=== PATIENT | female | born 1935 | race Hispanic/Latino ===

== ENCOUNTER 2017-01-23 17:55 | Emergency (ER) | payer MEDICARE, MEDICAID ==
[2017-01-23 18:06] VITALS: BMI 30.9
[2017-01-23 18:11] VITALS: TEMP 98.5
--- NOTE | 2017-01-23 19:01 | ED PDOC ---
Arrival/HPI - General Chief Complaint: Back Pain Time Seen by Provider: 01/23/17 18:34 Historian: Patient - History of Present Illness Narrative History of Present Illness (Text): 01/23/17 18:52 81yo female with PMhx of cervical radiculopathy, hypertension and CAD who present with complaint of left sided neck pain that radiates to her head and shoulder since this afternoon. States pain is "spasm" like. States she lifts her laundry, because she don't have anyone to help her and thinks it caused the pain. She denies chest pain, SOB, diaphoresis, nausea, vomiting , diarreha, Past Medical History - Provider Review Nursing Documentation Reviewed: Yes - Infectious Disease Hx of Infectious Diseases: None - Tetanus Immunization Tetanus Immunization: Unknown - Cardiac Hx Cardiac Disorders: Yes Hx SD: Yes (March 2015) - Pulmonary Hx Respiratory Disorders: Yes Hx Chronic Obstructive Pulmonary Disease (COPD): Yes - Neurological Hx Neurological Disorder: Yes (VERTIGO) Hx Alzheimer's Disease: No HX Cerebrovascular Accident: No Hx Dementia: No Hx Migraine: No Hx Parkinson's Disease: No Hx Seizures: No Hx Transient Ischemic Attacks (TIA): No - HEENT Hx HEENT Disorder: Yes Hx Cataracts: Yes (had sx b/l) Hx Deafness: No Hx Difficulty Chewing: No Hx Epistaxis: No Hx Glaucoma: Yes Hx Macular Degeneration: No Other/Comment: cataract surgery - Renal Hx Renal Disorder: No Hx Renal Failure: No - Endocrine/Metabolic Hx Endocrine Disorders: Yes Hx Hyperthyroidism: No Hx Hypothyroidism: Yes - Hematological/Oncological Hx Blood Disorders: Yes Hx Cancer: Yes (skin bridge of nose) - Integumentary Hx Dermatological Disorder: Yes Hx Basal Cell Carcinoma: No Hx Eczema: Yes Hx Melanoma: No Hx Psoriasis: No Hx Squamous Cell Carcinoma: No Other/Comment: skin cancer removed from the bridge of the nose. Patient does not know what type of skin cancer. - Musculoskeletal/Rheumatological Hx Arthritis: Yes Hx Osteoarthritis: Yes Hx Osteoporosis: Yes Hx Spinal Stenosis: Yes - Gastrointestinal Hx Gastrointestinal Disorders: Yes Hx Crohn's Disease: No Hx Diverticulitis: Yes Hx Gastroesophageal Reflux: Yes Hx Gastrointestinal Ulcer: Yes Hx Liver Failure: No - Genitourinary/Gynecological Hx Genitourinary Disorders: No Hx Hematuria: No Hx Incontinence: No Hx Prostate Problems: No Hx Sexually Transmitted Diseases: No Hx Urinary Tract Infection: No - Psychiatric Hx Psychophysiologic Disorder: Yes Hx Anxiety: Yes Hx Depression: Yes Hx Emotional Abuse: No Hx Physical Abuse: No Hx Substance Use: No - Surgical History Hx Coronary Stent: Yes (x4) Hx Orthopedic Surgery: Yes - Anesthesia Hx Anesthesia: Yes Hx Anesthesia Reactions: No Hx Malignant Hyperthermia: No - Suicidal Assessment Feels Threatened In Home Enviroment: No Family/Social History - Physician Review Nursing Documentation Reviewed: Yes Family/Social History: Unknown Family HX Smoking Status: Never Smoked Hx Alcohol Use: No Hx Substance Use: No Hx Substance Use Treatment: No Allergies/Home Meds Allergies/Adverse Reactions: Allergies lactase [From [employer]] Allergy (Verified 01/23/17 18:06) CONGESTION Penicillins Allergy (Verified 01/23/17 18:06) ANAPHYLAXIS Home Medications: Home Meds Medication Instructions Recorded Confirmed Levothyroxine Sodium 0.05 mg PO DAILY 02/12/13 01/23/17 buPROPion SR [Wellbutrin] 150 mg PO DAILY 09/01/14 01/23/17 ALPRAZolam [Xanax] 0.25 mg PO PRN PRN 01/23/17 01/23/17 Review of Systems - Physician Review All systems were reviewed & negative as marked: Yes - Review of Systems Constitutional: Normal Eyes: Normal ENT: Normal Respiratory: Normal Cardiovascular: Normal Gastrointestinal: Normal Genitourinary Female: Normal Musculoskeletal: Neck Pain Skin: Normal Neurological: Normal Endocrine: Normal Hemo/Lymphatic: Normal Psychiatric: Normal Physical Exam Vital Signs Reviewed: Yes Vital Signs Temp Pulse Resp BP Pulse Ox 01/23/17 22:27 59 L 17 148/69 94 L 01/23/17 18:07 98.5 F 65 16 155/73 H 96 Temperature: Afebrile Blood Pressure: Normal Pulse: Regular Respiratory Rate: Normal Appearance: Positive for: Well-Appearing, Non-Toxic, Comfortable Pain Distress: None Mental Status: Positive for: Alert and Oriented X 3 - Systems Exam Head: Present: Atraumatic, Normocephalic Pupils: Present: PERRL Extroacular Muscles: Present: EOMI Conjunctiva: Present: Normal Mouth: Present: Moist Mucous Membranes Neck: Present: Normal Range of Motion. No: MIDLINE TENDERNESS, Paraspinal Tenderness Respiratory/Chest: Present: Clear to Auscultation, Good Air Exchange. No: Respiratory Distress, Accessory Muscle Use Cardiovascular: Present: Regular Rate and Rhythm, Normal S1, S2. No: Murmurs Abdomen: Present: Normal Bowel Sounds. No: Tenderness, Distention, Peritoneal Signs Back: Present: Normal Inspection Upper Extremity: Present: Normal Inspection, Normal ROM, NORMAL PULSES, Neurovascularly Intact, Capillary Refill < 2s, Norm 2-Pt Discrimination. No: Cyanosis, Edema, Tenderness, Swelling, Erythema, Temperature Abnormalties, Deformity Lower Extremity: Present: Normal Inspection. No: Edema Neurological: Present: GCS=15, CN II-XII Intact, Speech Normal Skin: Present: Warm, Dry, Normal Color. No: Rashes Psychiatric: Present: Alert, Oriented x 3, Normal Insight, Normal Concentration Medical Decision Making ED Course and Treatment: 01/23/17 22:15 PT in ED with stated history. She was ambulatory in ED. she have no focal neurological deficit. Having discussion with her friend and laughing. Tylenol was given in ED for pain. EKG _ Sinus ferny. LVH @ 59bpm. No acute ST changes noted. Head CT - Mild atrophy and small vessel disease, no bleed; age indeterminate left frontal and basal ganglia infarcts. Result was DW Dr. Cardenas. He states pt should be DC home and instructed to take ASA daily and call the office tomorrow for a follow up and outpt imaging. On further discussion with the patient she states she currently takes 81mg of ASA at home. Result was DW the pt. She was given a rx of Tramadol and flexeril. Advised to stop lifting heavy objects and to f/u with her PMD tomorrow. Advised to return to ED immediately for any new or worsening symptoms.. - RAD Interpretation Radiology Orders: 01/23/17 18:48 HEAD W/O CONTRAST [CT] Stat 01/23/17 18:49 SHOULDER LEFT [RAD] Stat - Medication Orders Current Medication Orders: Discontinued Medications Acetaminophen (Tylenol 325mg Tab) 650 mg PO STAT STA Stop: 01/23/17 20:04 Last Admin: 01/23/17 20:13 Dose: 650 MG MAR Pain/Vitals Document 01/23/17 20:13 SE (Rec: 01/23/17 20:13 SE [id number]) Pain Reassessment Is This A Pain ReAssessment? No Sleep Is patient sleeping during reassessment? No Presence of Pain Presence of Pain Yes Disposition/Present on Arrival - Present on Arrival Any Indicators Present on Arrival: No History of DVT/PE: No History of Uncontrolled Diabetes: No Urinary Catheter: No History of Decub. Ulcer: No History Surgical Site Infection Following: None - Disposition Have Diagnosis and Disposition been Completed?: Yes Diagnosis: Neck pain Disposition: HOME/ ROUTINE Disposition Time: 22:05 Patient Plan: Discharge Condition: STABLE Discharge Instructions (ExitCare): Cervical Sprain (ED) Additional Instructions: Follow up with your Doctor tomorrow Return to ED for any new or worsening symptoms Prescriptions: Cyclobenzaprine [Flexeril] 5 mg PO BID #10 tab traMADol [Ultram] 50 mg PO Q8 #10 tab Referrals: Chay Samuel MD [Primary Care Provider] - Follow up with primary
--- NOTE | 2017-01-23 21:28 | CT ---
EXAM: CT Head Without Intravenous Contrast CLINICAL HISTORY: 81 years old, female; Pain; Headache; Headache not specified TECHNIQUE: Axial computed tomography images of the head/brain without intravenous contrast. EXAM DATE/TIME: 01/23/2017 6:48 PM COMPARISON: There are no prior studies for comparison. FINDINGS: Brain: Ventricles are normal in size. There is mild prominence of sulci and gyri. There is no midline shift. There is decrease attenuation in periventricular white matter. There is an age-indeterminate left frontal infarct. There are age-indeterminate small lacunar infarcts in the basal ganglia. There are no intra-axial or extra-axial mass lesions or areas of hemorrhage. There are no abnormal fluid collections. Peralta-white differentiation is maintained. Ventricles: See above Bones: Cranial vault is intact. Soft tissues: unremarkable Sinuses: There is no acute sinusitis. Ears and mastoids: Middle ears and mastoids are unremarkable Orbits: Orbital contents are unremarkable. IMPRESSION: Mild atrophy and small vessel disease, no bleed; age indeterminate left frontal and basal ganglia infarcts
[2017-01-23 22:27] VITALS: BP 148/69; PULSE 59; RESP 17; O2SAT 94
--- NOTE | 2017-01-24 08:55 | RAD ---
PROCEDURE: Radiographs of the Left Shoulder HISTORY: shoulder pain COMPARISON: No prior. FINDINGS: BONES: Normal. No fracture. JOINTS: Degenerative changes are seen in the acromioclavicular joint. SOFT TISSUES: There is a calcification adjacent to the humeral head consistent with calcific tendonitis OTHER FINDINGS: None. IMPRESSION: No acute finding
--- NOTE | 2017-01-24 15:34 | CARD ---
APPROVED REPORT EKG Measurement Heart [id number] CT 178P45 [id number] <Conclusion> Sinus bradycardia Minimal voltage criteria for LVH, may be normal variant Borderline ECG
== END 2017-01-23 22:28 | disposition home or self-care (01) ==
LOC: ED 17:55
DX: M54.2 Cervicalgia (principal); I10 Essential (primary) hypertension; I25.10 Atherosclerotic heart disease of native coronary artery without angina pectoris

== ENCOUNTER 2017-03-28 11:59 | Day surgery (SDC) | payer MEDICARE, MEDICAID ==
[2017-03-28] MEDS ORDERED: Iodixanol 320 MG/ML 200 ML BOTTLE IV ONE (12:04)
[2017-03-28] MEDS ORDERED: Iodixanol 320 mg/ml 150 ml Bottle IV ONE (12:04)
[2017-03-28 12:38] LABS: ADD MANUAL DIFF? NO
[2017-03-28 12:44] LABS: BASO # 0.03 K/mm3 (0.0-2.0); BASO % 0.5 % (0.0-3.0); EOS # 0.1 (0.0-0.7); GRAN % 55.3 % (50.0-68.0); HEMATOCRIT 38.6 % (36.0-48.0); LYMPH # 1.9 (1.2-3.4); LYMPH % 32.5 % (22.0-35.0); MEAN CELL VOLUME 93.5 fL (80.0-105.0); MEAN CORPUSCULAR HEMOGLOBIN 31.2 pg (25.0-35.0); MEAN CORPUSCULAR HGB CONC 33.4 g/dl (31.0-37.0); MEAN PLATELET VOLUME 9.5 fl (7.0-11.0); MONO # 0.6 (0.1-0.6); MONO % 9.7 % (1.0-6.0); PLATELET COUNT 195 10^3/uL (120.0-450.0); RED CELL DISTRIBUTION WIDTH 13.1 % (11.5-14.5)
[2017-03-28 12:53] LABS: INR 0.97 (0.93-1.08); PARTIAL THROMBOPLASTIN TIME 36.3 Seconds (23.7-30.8)
[2017-03-28 12:55] LABS: BLOOD UREA NITROGEN 17 mg/dL (7-21); CALCIUM 9.7 mg/dL (8.4-10.5); CARBON DIOXIDE 28 mmol/L (21-33); CHLORIDE 106 mmol/L (98-107); GFR AFRICAN-AMERICAN > 60; GLUCOSE,RANDOM 87 mg/dL (70-110); POTASSIUM 4.2 mmol/L (3.6-5.0); SODIUM 141 mmol/L (132-148)
--- NOTE | 2017-03-28 13:18 | CP.SDSHP ---
Same Day Surgery H & P - Previous Medical/Surgical History Cardiac: ASHD/CAD (S/P cardiac cath,had 4 stents), Previous PR (had PR x 2), PVD Pulmonary: Asthma, Emphysema/COPD Endocrine/Metabolic: Thyroid Disease (hypothyroidism), Obesity Misc: Other (Vertigo,Osteoporosis,Gerd,Arthritis,Glaucoma,history of skin cancer ,Spinal stenosis,Depression,Anxiety,Macular degeneration,GI Ulcer.History of Myasthenia gravis is noted in the chart,however,pt denies this.) Pain: 0. No Pain (while resting) Comments: Work up for c/o pain both legs revealed PVD. Previous Surgical History: Cardiac cath 2013,2015,had a total of 4 stents. Cataract surgery R eye. Surgery for skin canceron the nose. L leg patellar sugery. T&A as a child. Growth on anal area - Allergies Allergies: Allergies lactase [From Dairy Aid] Allergy (Verified 01/23/17 18:06) CONGESTION Penicillins Allergy (Verified 01/23/17 18:06) ANAPHYLAXIS - Physical Exam General Appearance: Well nourished elderly female Vital Signs: Vital Signs 03/28/17 12:42 Temperature 99 F Pulse Rate 66 Respiratory 20 Rate Blood Pressure 159/67 H O2 Sat by Pulse 95 Oximetry Mental Status: Alert & Oriented x3 Neuro: WNL Heart: WNL Lungs: WNL - {Optional Preform as Required} Abdomen: WNL Integument: WNL Other Pertinent Findings: both DP pulses felt by doppler - Impression Impression: PVD - Date & Time Date: 03/28/17 Time: 13:17 Short Stay Discharge - Short Stay Discharge Admitting Diagnosis/Reason for Visit: PVD I70.213 Disposition: HOME/ ROUTINE Referrals: Isrrael Cardenas MD [Primary Care Provider] -
[2017-03-28] MEDS ORDERED: Midazolam 2 MG/2 ML VIAL ONE ×2 (13:26→14:00)
[2017-03-28] MEDS ORDERED: Lidocaine 2% Inj (20ml) ONE (13:26)
[2017-03-28] MEDS ORDERED: Nitroglycerin 50mg in D5W 50 MG/250 ML BOTTLE IV ONE (13:27)
[2017-03-28] MEDS ORDERED: Oxycodone/Acetaminophen 5/325 mg Tab PO PRN (15:02)
[2017-03-28] MEDS ORDERED: Sodium Chloride 0.45% 1,000 ML IV SCH (15:15)
[2017-03-28 15:56] VITALS: RESP 20; TEMP 97.7
--- NOTE | 2017-03-28 16:29 | VASCULAR ---
PROCEDURE: 1. Abdominal aortogram and bilateral lower extremity runoff with left selective views. 2. Distal left SFA silver Hawk atherectomy and drug-eluting balloon angioplasty 3. Proximal left anterior tibial artery angioplasty HISTORY: Severe peripheral vascular disease. Lifestyle limiting claudication. PHYSICIAN(S): Zach aSmuel M.D. TECHNIQUE: The relative risks and indications of the procedure were explained to the patient and consent obtained. The patient was hydrated prior to the procedure and the appropriate labs drawn. The patient was placed supine on the arteriogram table and the right groin prepped and draped in the usual sterile fashion. Conscious sedation and monitoring were provided throughout the procedure by a nurse. Via a right common femoral artery approach, a 5 Micronesian sheath was placed in the right groin. Through the sheath and over a guidewire, a 5 Micronesian flush catheter was placed in the abdominal aorta at the level of the renal arteries and a PA DSA abdominal aortogram performed. The catheter was pulled down to the aortic bifurcation and bilateral oblique DSA pelvic arteriograms performed. Overlapping bilateral lower extremity DSA arteriograms were obtained from the inguinal ligaments to the ankles. A 0.035 angled Glidewire was advanced over the bifurcation and placed in the mid left SFA. A Micronesian 65 cm destination sheath was placed in the mid left SFA. Heparin 5000 units IV and nitroglycerin in 250 mcg aliquots were given. The severe stenosis in the distal left SFA and severe stenosis in the proximal left anterior tibial artery were crossed with a 5 Micronesian catheter and angled Glidewire.. Exchange was made for a 0.014 support guidewire. The proximal left anterior tibial artery was dilated with a 3.0 and 3.5 mm balloon. An excellent angiographic result was obtained and no stent was required. Silver Hawk atherectomy of the distal left SFA was performed with and LS catheter. Approximately 8 passes were performed. The segment was then dilated with a 6 mm drug-eluting balloon. Once again an excellent angiographic result was obtained and no stent was required. Completion angiograms were obtained. The sheath was removed and hemostasis obtained with a Perclose device. FINDINGS: There are single renal arteries bilaterally which are widely patent and normal in appearance. The nephrograms are symmetric in appearance. The infrarenal abdominal aorta is widely patent without a radiographically significant stenosis. The aortic bifurcation is widely patent. The common and external iliac arteries are normal in appearance without a significant stenosis. The internal iliac arteries are patent bilaterally. Right lower extremity: The right common femoral artery is patent. The right profunda femoral artery is patent. The right superficial femoral artery is patent and continuous with a severe 3 cm stenosis in the adductor canal.. The right popliteal artery has moderate to severe disc disease which extends into the tibial-peroneal trunk. There is 3 vessel runoff on the right. Multiple severe stenoses are seen in the small right anterior tibial artery. The predominant supply to the foot is the right peroneal and posterior tibial arteries. Left lower extremity: Left common femoral artery is patent. The left profunda femoral artery is patent. The left superficial femoral artery is patent with a severe focal stenosis in the adductor canal. The left popliteal artery is patent. There is an occlusion of the proximal left tibioperoneal trunk. The left posterior tibial artery is occluded. There is reconstitution of the left peroneal artery. There is a severe stenosis of the proximal left anterior tibial artery. The left anterior tibial artery is a predominant supply to the foot. There are additional mild to moderate stenoses in the mid to distal left anterior tibial artery.. IMPRESSION: 1.Successful distal left SFA silver Hawk atherectomy and drug-eluting balloon angioplasty 2. Successful proximal left anterior tibial artery angioplasty. The left tibioperoneal trunk is occluded.
[2017-03-28 19:07] VITALS: O2SAT 97
[2017-03-28 19:12] VITALS: BP 158/70; PULSE 62
== END 2017-03-28 19:09 | disposition home or self-care (01) ==
LOC: SDSVAS 11:59
PROVIDERS: ATTEND Radiology Vascular & Interventional Radiology
DX: I70.213 Atherosclerosis of native arteries of extremities with intermittent claudication, bilateral legs (principal); I25.10 Atherosclerotic heart disease of native coronary artery without angina pectoris; J44.9 Chronic obstructive pulmonary disease, unspecified; E66.9 Obesity, unspecified; E03.9 Hypothyroidism, unspecified; H35.30 Unspecified macular degeneration; M81.0 Age-related osteoporosis without current pathological fracture; K21.9 Gastro-esophageal reflux disease without esophagitis; F41.9 Anxiety disorder, unspecified; I25.2 Old myocardial infarction; Z85.828 Personal history of other malignant neoplasm of skin; Z95.5 Presence of coronary angioplasty implant and graft
CPT/HCPCS: 36415; 37225; 37226; 75625; 75716; 80048; 85025; 85610; 85730; 99152; 99153; C1725 ×4; C1760 ×2; C1764; C1769 ×4; C1887 ×2; C1894; J1644 ×2; J2250; J2405; J3010; J7030

== ENCOUNTER 2018-05-04 17:09 | Inpatient (IN) | payer MEDICARE, MEDICAID ==
[2018-05-04 17:14] VITALS: BMI 30.2
--- NOTE | 2018-05-04 17:24 | ED PDOC ---
Arrival/HPI - General Time Seen by Provider: 05/04/18 17:14 Historian: Patient - History of Present Illness Narrative History of Present Illness (Text): 05/04/18 17:16 A 83 year old female, whose past medical history includes copd, hypothyroidism, eczema, gerd, diverticulitis, gastrointestinal ulcer, and coronary stents x 4, brought in by EMS for injuries s/p fall. Per EMS, patient's neighbor called 911 due to not having seen patient for a few days. Patient was found on the floor and immediately brought here to the emergency room. Patient states she has been on the floor for about 1 day. Limited HPI and ROS due to patient's AMS at this time. PMD: Dr. Isrrael Cardenas Past Medical History - Provider Review Nursing Documentation Reviewed: Yes - Infectious Disease Hx of Infectious Diseases: None - Tetanus Immunization Tetanus Immunization: Unknown - Cardiac Hx Pacemaker: No - Pulmonary Hx Respiratory Disorders: Yes Hx Chronic Obstructive Pulmonary Disease (COPD): Yes - Neurological Hx Paralysis: No - HEENT Hx HEENT Disorder: Yes Hx Cataracts: Yes (had sx b/l) Hx Deafness: No Hx Difficulty Chewing: No Hx Epistaxis: No Hx Glaucoma: Yes Hx Macular Degeneration: No Other/Comment: cataract surgery - Renal Hx Renal Disorder: No Hx Renal Failure: No - Endocrine/Metabolic Hx Endocrine Disorders: Yes Hx Hyperthyroidism: No Hx Hypothyroidism: Yes - Hematological/Oncological Hx Blood Transfusions: No - Integumentary Hx Dermatological Disorder: Yes Hx Basal Cell Carcinoma: No Hx Eczema: Yes Hx Melanoma: No Hx Psoriasis: No Hx Squamous Cell Carcinoma: No Other/Comment: skin cancer removed from the bridge of the nose. Patient does not know what type of skin cancer. - Musculoskeletal/Rheumatological Hx Musculoskeletal Disorders: Yes - Gastrointestinal Hx Gastrointestinal Disorders: Yes Hx Crohn's Disease: No Hx Diverticulitis: Yes Hx Gastroesophageal Reflux: Yes Hx Gastrointestinal Ulcer: Yes Hx Liver Failure: No - Genitourinary/Gynecological Hx Genitourinary Disorders: No Hx Hematuria: No Hx Incontinence: No Hx Prostate Problems: No Hx Sexually Transmitted Diseases: No Hx Urinary Tract Infection: No - Psychiatric Hx Emotional Abuse: No Hx Physical Abuse: No Hx Substance Use: No - Surgical History Hx Coronary Stent: Yes (x4) Hx Orthopedic Surgery: Yes - Anesthesia Hx Anesthesia Reactions: No Hx Malignant Hyperthermia: No - Suicidal Assessment Feels Threatened In Home Enviroment: No Family/Social History - Physician Review Nursing Documentation Reviewed: Yes Family/Social History: Unknown Family HX Smoking Status: Never Smoked Hx Alcohol Use: No Hx Substance Use: No Hx Substance Use Treatment: No Allergies/Home Meds Allergies/Adverse Reactions: Allergies lactase [From Dairy Aid] Allergy (Verified 05/04/18 17:14) CONGESTION Penicillins Allergy (Verified 05/04/18 17:14) ANAPHYLAXIS Home Medications: Home Meds Medication Instructions Recorded Confirmed Levothyroxine Sodium 0.05 mg PO DAILY 02/12/13 03/28/17 buPROPion SR [Wellbutrin] 150 mg PO DAILY 09/01/14 03/28/17 ALPRAZolam [Xanax] 0.25 mg PO PRN PRN 01/23/17 03/28/17 Review of Systems - Review of Systems Systems not reviewed;Unavailable: Altered Mental Status Physical Exam - Physical Exam Narrative Physical Exam (Text): Gen: VS reviewed, alert, well developed, well nourished, nontoxic, mild distress. ENT: normal pharynx Eye: EOMI, PERRL, bruising and ecchymosis to left eye Neck: no JVD, supple, no adenopathy CV: regular rate, regular rhythm, no rubs, no murmur, no gallops, S1, S2, pulses equal and strong Pulm: no distress, lear to auscultation, no wheeze, no rhonchi, breath sounds equal, no rales Abd: soft, nontender, no guarding, no rebound, no rigidity, normal bowel sounds Ext: left hand swelling, left elbow bruising, left lateral knee bruising, left hip skin breakdown, mild medial discoloration. Skin: good color, no rash, no cyanosis, bruising and ecchymosis to forehead Psych: responds appropriately to questions, normal affect Neuro: oriented x 3, CN2-12 intact grossly, motor intact, sensation intact, left -side mouth droop Vital Signs Temp Pulse Resp BP Pulse Ox 05/04/18 21:30 92 H 18 160/85 H 95 05/04/18 21:20 98 H 18 151/69 H 05/04/18 20:50 98 H 18 151/69 H 93 L 05/04/18 17:33 98.0 F 83 18 158/92 H 95 Finger Stick Blood Glucose: 132 Medical Decision Making ED Course and Treatment: 05/04/18 17:21 Impression: 83 year old female with injuries s/p fall. Plan: -- EKG -- Head CT -- Cervical Spinal CT -- Chest/Abd/Pelvis CT -- Labs -- Venous Blood Gas -- Blood Culture -- Urine Culture -- IV Fluids -- Urinalysis -- Collar Cervical -- Fingerstick Blood Sugar -- Urinary Catheter -- Reassess and disposition Progress Notes: 05/04/18 17:40 EKG: Ordered, reviewed, and independently interpreted the EKG. Rate : 81 BPM Rhythm : NSR Interpretation : Normal QRS, normal access, no ST- and T wave abnormalities, LVH. Comparison : No previous EKG for comparison. 05/04/2018 18:[address] IMPRESSION: Right basal ganglia subacute infarct. Mild mass effect with compression of the right lateral ventricle. No hemorrhagic transformation. Moderate soft tissue edema of the left hemispheric scalp. Dictator: Dwayne Tang MD 05/04/2018 19:[address] IMPRESSION: Nondisplaced fracture of the leg 10th rib. There is nonspecific or focal airspace disease in the left lung base and lingula , consistent with atelectasis or pneumonia. Multiple likely post inflammatory nodules. Largest in the right apex 4 mm. Calcified granuloma left lung base. For lung nodules 4 mm or smaller in seize, if the patient is considered high risk for lung cancer or metastic disease, follow-up CT in 12 months is recommended. If patient is considered low risk amd under age 35, no follow-up needed. Dictator: Dwayne Tang MD 05/04/2018 19:[address] IMPRESSION: No significant injury noted in the C-spine. Severe degenerative changes of the C-spine are present. Dictator: Dwayne Tang MD 05/04/18 20:24 admit accepted by hospitalist, patient to be admitted for cva, patient is far out of window for acute thrombolysis or mechanical retrieval. will empirically tx for pneumonia in light of infiltrate and leukocytosis. patient ordered for rectal aspirin for neuroprotection. from a mental standpoint, despite patient's somewhat difficult to understand speech, her mentation was appropriate, she was able to follow commands and she requested that I call her daughter Brunilda. 05/04/18 20:31 LMOM to attempt to call mario Worley on number on file 05/04/18 21:53 - Lab Interpretations Lab Results: 05/04/18 17:00 05/04/18 17:00 Lab Results 05/04/18 17:00: TSH 3rd Generation 1.07 05/04/18 17:00: Sodium 144, Chloride 103, Potassium 3.9, Carbon Dioxide 29, Anion Gap 16, BUN 29 H, Creatinine 0.8, Est GFR ( Amer) > 60, Est GFR ( Non-Af Amer) > 60, Random Glucose 131 H, Calcium 9.4, Phosphorus 2.8, Magnesium 2.5 H, Total Bilirubin 0.9, AST 106 H, ALT 54, Alkaline Phosphatase 98, Total Creatine Kinase 1533 H, CK-MB (CK-2) 8.4 H, CK-MB (CK-2) % 0.5 L, Troponin I 0.03 D, Total Protein 8.2, Albumin 4.3, Globulin 3.9, Albumin/Globulin Ratio 1.1, Lipase 36 05/04/18 17:00: pO2 23 L, VBG pH 7.38, VBG pCO2 55.0, VBG HCO3 32.5 H, VBG Total CO2 34.2 H, VBG O2 Sat (Calc) 47.1, VBG Base Excess 5.8 H, VBG Potassium 4.2, Sodium 143.0, Chloride 107.0, Glucose 131 H, Lactate 2.0, FiO2 21.0, Venous Blood Potassium 4.2 05/04/18 17:00: PT 12.5, INR 1.09 H, APTT 46.6 H 05/04/18 17:00: WBC 16.2 H D, RBC 5.30, Hgb 16.6 H, Hct 49.6 H, MCV 93.6, MCH 31.3, MCHC 33.5, RDW 13.6, Plt Count 205, MPV 9.8, Gran % 76.7 H, Lymph % (Auto ) 10.2 L, Cache % (Auto) 13.0 H, Eos % (Auto) 0.0 L, Baso % (Auto) 0.1, Gran # 12.42 H, Lymph # (Auto) 1.7, Cache # (Auto) 2.1 H, Eos # (Auto) 0.0, Baso # (Auto ) 0.02 - RAD Interpretation Radiology Orders: 05/04/18 17:22 HEAD W/O CONTRAST [CT] Stat 05/04/18 17:23 CERVICAL SPINE W/O CONTRAST [CT] Stat CHEST,ABD,PEL W/IV CONT ONLY [CT] Stat - Medication Orders Current Medication Orders: Atorvastatin Calcium (Lipitor) 40 mg PO DIN MARK Guaifenesin (Robitussin) 100 mg PO Q4H PRN PRN Reason: Cough Sodium Chloride (Sodium Chloride 0.9%) 1,000 mls @ 150 mls/hr IV .Q6H40M MARK Last Admin: 05/04/18 18:37 Dose: 150 mls/hr eMAR Start Stop Document 05/04/18 18:37 [email or web address] (Rec: 05/04/18 18:37 [email or web address] [id number]) Intravenous Solution Start Date 05/04/18 Start Time 18:37 Discontinued Medications Aspirin (Aspirin Supp) 300 mg RC STAT STA Stop: 05/04/18 19:25 Last Admin: 05/04/18 19:35 Dose: 300 mg Levofloxacin/Dextrose (Levaquin 750mg) 750 mg IVPB STAT STA PRN Reason: Protocol Stop: 05/04/18 19:29 Last Admin: 05/04/18 21:29 Dose: 750 mg eMAR Start Stop Document 05/04/18 21:29 IT (Rec: 05/04/18 21:30 IT [facility] [id number] Intravenous Solution Start Date 05/04/18 Start Time 21:15 End Date 05/04/18 NIHSS Stroke Scale 3 - Date/Time Evaluation Performed When Was NIHSS Performed: Baseline - How Severe is the Stroke Level of Consciousness: 0=Alert LOC to Questions: 0=Both comments correct LOC to commands: 0=Obeys both correctly Best Gaze: 0=Normal Visual: 0=No visual loss Facial: 2=Partial (lower face paralysis) Motor Arm - Left: 4=No movement Motor Arm - Right: 0=No drift Motor Leg - Left: 4=No movement Motor Leg - Right: 0=No drift Limb Ataxia: 0=Absent Sensory: 2=Severe to total loss Best Language: 0=No aphasia Dysarthia: 1=Mild to moderate slurring Extinction & Inattention (Neglect): 0=Normal, no object Score: 13 - Scribe Statement The provider has reviewed the documentation as recorded by the Domo Ortega Provider Scribe Provider Domo Attestation: All medical record entries made by the Domo were at my direction and personally dictated by me. I have reviewed the chart and agree that the record accurately reflects my personal performance of the history, physical exam, medical decision making, and the department course for this patient. I have also personally directed, reviewed, and agree with the discharge instructions and disposition. Disposition/Present on Arrival - Present on Arrival Any Indicators Present on Arrival: No History of DVT/PE: No History of Uncontrolled Diabetes: No Urinary Catheter: No History Surgical Site Infection Following: None - Disposition Have Diagnosis and Disposition been Completed?: Yes Diagnosis: CVA (cerebral vascular accident), Rhabdomyolysis, Pneumonia Disposition: HOSPITALIZED Disposition Time: 20:27 Patient Plan: Admission Patient Problems: Current Active Problems Problem Status Onset CVA (cerebral vascular accident) Acute Pneumonia Acute Rhabdomyolysis Acute Condition: FAIR
[2018-05-04] MEDS ORDERED: Iohexol 350 MG/100 ML VIAL ONE (17:37)
[2018-05-04] MEDS: Sodium Chloride 0.9% 1,000 ML IV SCH (18:37)
[2018-05-04 18:59] LABS: TROPONIN I 0.03 ng/mL
[2018-05-04 19:01] LABS: BASO # 0.02 K/mm3 (0.0-2.0); BASO % 0.1 % (0.0-3.0); GRAN # 12.42 (1.4-6.5); GRAN % 76.7 % (50.0-68.0); HEMOGLOBIN 16.6 g/dL (12.0-16.0); LYMPH # 1.7 (1.2-3.4); LYMPH % 10.2 % (22.0-35.0); MEAN CELL VOLUME 93.6 fl (80.0-105.0); MEAN CORPUSCULAR HEMOGLOBIN 31.3 pg (25.0-35.0); MEAN CORPUSCULAR HGB CONC 33.5 g/dl (31.0-37.0); MEAN PLATELET VOLUME 9.8 fl (7.0-11.0); MONO # 2.1 (0.1-0.6); RBC 5.3 10^6/uL (3.5-6.1); RED CELL DISTRIBUTION WIDTH 13.6 % (11.5-14.5); WHITE BLOOD COUNT 16.2 10^3/ul (4.5-11.0)
[2018-05-04 19:03] LABS: VENOUS BLOOD GAS BASE EXCESS 5.8 mmol/L (0.0-2.0); VENOUS BLOOD GAS PO2 23 mm/Hg (30-55); VENOUS BLOOD PH 7.38 (7.32-7.43)
[2018-05-04 19:13] LABS: ALB/GLOB RATIO 1.1 (1.1-1.8); ALBUMIN 4.3 g/dL (3.0-4.8); ALT/SGPT 54 U/L (7-56); AST/SGOT 106 U/L (14-36); BLOOD UREA NITROGEN 29 mg/dL (7-21); CALCIUM 9.4 mg/dL (8.4-10.5); GFR AFRICAN-AMERICAN > 60; GFR NON-AFRICAN AMERICAN > 60; LIPASE 36 U/L (23-300)
[2018-05-04 19:23] LABS: INR 1.09 (0.93-1.08); PARTIAL THROMBOPLASTIN TIME 46.6 Seconds (25.1-36.5); PROTHROMBIN TIME 12.5 SECONDS (9.4-12.5)
[2018-05-04] MEDS ORDERED: levoFLOXacin 750 mg in D5W 150 ML BAG IVPB STA (19:28)
[2018-05-04 19:33] LABS: CK MB% 0.5 % (2.5-3.0); CK-MB 8.4 ng/mL (0.0-3.6)
[2018-05-04] MEDS ORDERED: guaiFENesin 100 mg/5 ml Syrup UD PO PRN (21:46)
--- NOTE | 2018-05-04 22:21 | CP.PCM.HP ---
<Nael Haas - Last Filed: 05/05/18 06:27> History of Present Illness - History of Present Illness History of Present Illness: HPI: for Dr Yonatan Haas, DO PGY1 C.C: s/p unwitnessed fall. has been on the floor x2 days HPI: 83 y/o female with PMH of HTN,CAD (4 stents), COPD, hypothyroidism presents s/p unwitnessed fall in her house where she was found by EMS after responding to a call placed by neighbors. She lives alone, neighbors were worried not to hear from her for 2 day and they called EMS. Patient reported that she was not able to get up from the floor however does not recall the fall. Patient admits to left chest wall pain, b/l leg pain, left facial pain all due to her fall. She denied LOC, chest pain, palpitations, cough. She reports taking low dose ASA, levothyroxin. Her daughter was contacted, a voicemail was left by ED physician. Due to speech difficulty, obtaining full history is not feasible at that time. Full H/P will be obtained at the floor. PMH: FL x2, vertigo, skin cancer,depression, hypothyroidism, vertigo PSH: b/l cataract surgery FH: none SocH: never smoke, no drugs or ETOH In ED: -BP: 153/74 P 97 - CT head: basal ganglia infarct. no hemorrhage -CT chest w/contrast: non dispalced fracture of 10 left rib, left lung base infiltrates. no pneumothorax. -CT spine w/o contrast: no fracture, degenerative changes Present on Admission - Present on Admission Any Indicators Present on Admission: No History of DVT/PE: No History of Uncontrolled Diabetes: No Review of Systems - Review of Systems Systems not reviewed;Unavailable: Uncooperative - EENT Nose/Mouth/Throat: Dry Mouth, Facial Pain - Cardiovascular Cardiovascular: absent: Chest Pain, Palpitations - Respiratory Respiratory: absent: Cough, Wheezing - Gastrointestinal Gastrointestinal: absent: Abdominal Pain, Cramping, Diarrhea, Dyspepsia, Vomiting - Genitourinary Genitourinary: absent: Change in Urinary Stream, Nocturia - Musculoskeletal Musculoskeletal: Back Pain, Muscle Weakness - Neurological Neurological: Radicular Pain Past Patient History - Infectious Disease Hx of Infectious Diseases: None - Tetanus Immunizations Tetanus Immunization: Unknown - Past Medical History & Family History Past Medical History?: Yes - Past Social History Smoking Status: Never Smoked Home Situation {Lives}: Alone - CARDIAC Hx Cardiac Disorders: Yes Hx Angina: Yes Hx Heart Attack: Yes (2 FL) Hx Hypertension: Yes Hx Pacemaker: No Hx Peripheral Vascular Disease: Yes - PULMONARY Hx Respiratory Disorders: Yes Hx Asthma: Yes Hx Chronic Obstructive Pulmonary Disease (COPD): Yes - NEUROLOGICAL Hx Paralysis: No Hx Vertigo: Yes - HEENT Hx HEENT Problems: Yes Hx Cataracts: Yes (had sx b/l) Hx Deafness: No Hx Difficulty Chewing: No Hx Epistaxis: No Hx Glaucoma: Yes Hx Macular Degeneration: No Other/Comment: cataract surgery - RENAL Hx Chronic Kidney Disease: No Hx Renal Failure: No - ENDOCRINE/METABOLIC Hx Endocrine Disorders: Yes Hx Hyperthyroidism: No Hx Hypothyroidism: Yes - HEMATOLOGICAL/ONCOLOGICAL Hx Anemia: Yes Hx Blood Transfusions: No - INTEGUMENTARY Hx Dermatological Problems: Yes Hx Basil Cell: No Hx Eczema: Yes Hx Melanoma: No Hx Psoriasis: No Hx Squamous Cell: No Other/Comment: skin cancer removed from the bridge of the nose. Patient does not know what type of skin cancer. 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 ) Hx Coronary Stent: Yes (x4) Hx Orthopedic Surgery: Yes - ANESTHESIA Hx Anesthesia: Yes Hx Anesthesia Reactions: No Hx Malignant Hyperthermia: No Meds Allergies/Adverse Reactions: Allergies Allergy/AdvReac Type Severity Reaction Status Date / Time lactase [From Dairy Aid] Allergy CONGESTION Verified 05/04/18 17:14 Penicillins Allergy ANAPHYLAXIS Verified 05/04/18 17:14 Physical Exam - Constitutional Appears: Unkempt, Confused - Expanded Head Exam Expanded Head Exam: Abrasion (left sided ), Hematoma (left facial. around lt eye and above lt eye brow), Laceration - Eye Exam Eye Exam: Periorbital swelling (left eye), PERRL Pupil Exam: PERRL - ENT Exam ENT Exam: Mucous Membranes Dry - Neck Exam Neck exam: Positive for: Normal Inspection - Respiratory Exam Respiratory Exam: Chest Wall Tenderness (left side), Decreased Breath Sounds ( left side) - Cardiovascular Exam Cardiovascular Exam: REGULAR RHYTHM, +S1, +S2 - GI/Abdominal Exam GI & Abdominal Exam: Normal Bowel Sounds, Soft. absent: Tenderness - Rectal Exam Rectal Exam: Deferred - Extremities Exam Extremities exam: Negative for: calf tenderness, pedal pulses present - Expanded Lower Extremities Exam Left Hip exam: abrasion (left thigh), erythema, laceration Upper Leg exam: abrasion, dislocation, ecchymosis Knee exam: abrasion, dislocation, laceration, swelling Lower Leg Exam: normal inspection Ankle exam: NORMAL INSPECTION Foot/Toe exam: normal inspection - Back Exam Back exam: absent: CVA tenderness (L), CVA tenderness (R) - Neurological Exam Neurological exam: Alert, Altered - Expanded Neurological Exam Expanded Patient oriented to: person, place, time Speech: Stutter Cranial nerves: Facial Palsey w/o Forehead Movement: Abnormal Left, Gag Reflex: Abnormal Left Upper motor neuron: Sensory Extinction: Normal Sensory exam: Upper Extremity Light Touch: Normal Neuro motor strength exam: Left Upper Extremity: 2/1, Right Upper Extremity: 4, Left Lower Extremity: 2/1, Right Lower Extremity: 4 DTR: Patellar Left: 0, Patellar Right: 2+ Coma Scale Verbal: Confused - Psychiatric Exam Psychiatric exam: Anxious - Skin Skin Exam: Abrasion (diffuse abrasion, erythema on left face and b/l LE ), Cyanosis, Erythema, Warm - Expanded Skin Exam Expanded Type of lesion: Abrasion, Laceration Distribution of rash: Face, Right Lower Extremity, Left Lower Extremity Description of Rash: Erythematous, Swelling Results - Vital Signs Recent Vital Signs: Last Vital Signs Temp 98.0 F 05/04/18 17:33 Pulse 92 H 05/04/18 21:30 Resp 18 05/04/18 21:30 BP 160/85 H 05/04/18 21:30 Pulse Ox 95 05/04/18 21:30 - Labs Result Diagrams: 05/04/18 17:00 05/04/18 17:00 - EKG Data EKG Interpreted by: Other EKG shows normal: Sinus rhythm Rate: Normal Assessment & Plan (1) CVA (cerebral vascular accident) Assessment and Plan: -CT head: basal ganglia infarct, no cerebral hemorrhage -Admit to telemetry -ASA 325 mg -Lipitor 40 mg -CBC, CMP -PT/PTT -Speech eval/rx -NPO -Neuro consult -PT/OT -Hbg A1c, lipid panel Status: Acute (2) Pneumonia Assessment and Plan: -CT chest: Left sided infiltrates. Aspiration neumonia vs atelectasis d/t immobilization. -Aztreonam -sputum cx -procalcitonin -blood cx -Duoneb prn -probiotics Status: Acute (3) Rhabdomyolysis Assessment and Plan: -CK (05/04): 1533 -IVF: NS 0.9% @100 ml/hr -serial CK, Cr Status: Acute (4) Rib fracture Assessment and Plan: -CT chest w/contrast: non displaced fx of left 10th rib. no pneumothorax. -Oxygen NC prn -incentive spirometry -pain management -cough meds prn Status: Acute (5) COPD (chronic obstructive pulmonary disease) Assessment and Plan: -Duoneb prn -O2 via NC prn Status: Chronic (6) Hypothyroidism Assessment and Plan: -TSH -c/w levothyroxine Status: Chronic (7) CAD (coronary artery disease) Assessment and Plan: - EKG: NSR -Troponin 0.03 x1 - h/o FL x2. 4 stents placed - Last stress test (2016): normal -Statin -ASA Status: Chronic (8) PVD (peripheral vascular disease) with claudication Assessment and Plan: - no active symptoms during this admission Status: Chronic <Jennifer Tam - Last Filed: 05/05/18 07:13> Results - Vital Signs Recent Vital Signs: Last Vital Signs Temp 98.2 F 05/04/18 23:43 Pulse 83 05/05/18 02:00 Resp 17 05/04/18 23:43 BP 153/74 H 05/04/18 23:43 Pulse Ox 94 L 05/04/18 23:43 - Labs Result Diagrams: 05/04/18 17:00 05/04/18 17:00 Attending/Attestation - Attestation I have personally seen and examined this patient.: Yes I have fully participated in the care of the patient.: Yes I have reviewed all pertinent clinical information: Yes Notes (Text): 05/05/18 07:11 Pt found on the floor. She has multiple active issues. Plan of care discussed with resident. Gently hydrate Neuro Consult, ASA ( full dose) , Statin, PT/OT/ST IV abx with anaerobic coverage for aspiration pneumonia
[2018-05-04] MEDS ORDERED: Albuterol-Ipratrop 3 mg / 0.5 (3 ml) UD IH PRN (22:49)
[2018-05-05] MEDS ORDERED: guaiFENesin DM 100 mg-10 mg/5 ml UD PO PRN (05:48)
[2018-05-05 07:10] LABS: BASO # 0.02 K/mm3 (0.0-2.0); BASO % 0.1 % (0.0-3.0); GRAN # 9.88 (1.4-6.5); GRAN % 71.4 % (50.0-68.0); LYMPH % 14.2 % (22.0-35.0); MEAN CELL VOLUME 93.2 fl (80.0-105.0); MEAN CORPUSCULAR HEMOGLOBIN 31.2 pg (25.0-35.0); MEAN CORPUSCULAR HGB CONC 33.5 g/dl (31.0-37.0); MEAN PLATELET VOLUME 9.4 fl (7.0-11.0); MONO % 14.3 % (1.0-6.0); RBC 4.42 10^6/uL (3.5-6.1); RED CELL DISTRIBUTION WIDTH 13.8 % (11.5-14.5); WHITE BLOOD COUNT 13.8 10^3/ul (4.5-11.0)
[2018-05-05 07:23] LABS: HEMOGLOBIN 13.8 g/dL (12.0-16.0)
[2018-05-05 07:34] LABS: INR 1.2 (0.93-1.08); PARTIAL THROMBOPLASTIN TIME 36.4 Seconds (25.1-36.5); PROTHROMBIN TIME 13.8 SECONDS (9.4-12.5)
[2018-05-05 07:39] LABS: LDL CHOLESTEROL 136 mg/dL (0-129)
[2018-05-05 07:41] LABS: ALB/GLOB RATIO 1.1 (1.1-1.8); ALBUMIN 3.4 g/dL (3.0-4.8); ALT/SGPT 47 U/L (7-56); AST/SGOT 76 U/L (14-36); BLOOD UREA NITROGEN 33 mg/dL (7-21); CALCIUM 8.5 mg/dL (8.4-10.5); GFR AFRICAN-AMERICAN > 60; GFR NON-AFRICAN AMERICAN > 60; HDL CHOLESTEROL 44 mg/dL (29-60)
[2018-05-05 07:51] LABS: CK MB% 0.5 % (2.5-3.0); CK-MB 6.5 ng/mL (0.0-3.6)
--- NOTE | 2018-05-05 08:15 | CT ---
Date of service: 05/04/2018 PROCEDURE: CT HEAD WITHOUT CONTRAST. HISTORY: trauma COMPARISON: None available. TECHNIQUE: Axial computed tomography images were obtained through the head/brain without intravenous contrast. Radiation dose: Total exam DLP = mGy-cm. This CT exam was performed using one or more of the following dose reduction techniques: Automated exposure control, adjustment of the mA and/or kV according to patient size, and/or use of iterative reconstruction technique. FINDINGS: HEMORRHAGE: Right basal ganglia subacute infarct with mild mass effect and compression of the right lateral ventricle with moderate soft tissue edema of the left and a spheric suggested BRAIN: No mass effect or edema. No atrophy or chronic microvascular ischemic changes. VENTRICLES: Unremarkable. No hydrocephalus. CALVARIUM: Unremarkable. PARANASAL SINUSES: Unremarkable as visualized. No significant inflammatory changes. MASTOID AIR CELLS: Unremarkable as visualized. No inflammatory changes. OTHER FINDINGS: None. IMPRESSION: Right basal ganglia subacute infarct with mild mass effect and compression of the right lateral ventricle with moderate soft tissue edema of the left and a spheric suggested
[2018-05-05] MEDS: Sodium Chloride 0.9% 1,000 ML IV SCH ×4 (08:16→20:15)
--- NOTE | 2018-05-05 08:18 | CT ---
Date of service: 05/04/2018 PROCEDURE: CT Cervical Spine without contrast HISTORY: trauma COMPARISON: None available. TECHNIQUE: Axial computed tomography images were obtained of the cervical spine without the use of intravenous contrast. Coronal and sagittal reformatted images were created and reviewed. Radiation dose: Total exam DLP = mGy-cm. This CT exam was performed using one or more of the following dose reduction techniques: Automated exposure control, adjustment of the mA and/or kV according to patient size, and/or use of iterative reconstruction technique. FINDINGS: VERTEBRAE: No fracture. Normal alignment. No destructive bony lesion. DISCS/SPINAL CANAL/NEURAL FORAMINA: Multilevel severe degenerative disc disease and spondylosis. PARASPINAL SOFT TISSUES: Unremarkable. OTHER FINDINGS: None. IMPRESSION: No acute fracture.
--- NOTE | 2018-05-05 08:33 | CT ---
Date of service: 05/04/2018 PROCEDURE: CT Chest, Abdomen and Pelvis with intravenous contrast HISTORY: trauma COMPARISON: None. TECHNIQUE: IV dose administered: Radiation dose: Total exam DLP = mGy-cm. This CT exam was performed using one or more of the following dose reduction techniques: Automated exposure control, adjustment of the mA and/or kV according to patient size, and/or use of iterative reconstruction technique. FINDINGS: CT CHEST WITH CONTRAST: LUNGS: Left lower lobe lateral subpleural infiltrates. MEDIASTINUM: Unremarkable. Normal caliber aorta and pulmonary arterial trunk. No aortic dissection. Normal size heart. LYMPH NODES: Unremarkable. PLEURA: Unremarkable. No pneumothorax. No pleural fluid. BONES: Unremarkable. OTHER FINDINGS: None. CT ABDOMEN AND PELVIS: LIVER: Unremarkable. No gross lesion or ductal dilatation. GALLBLADDER AND BILE DUCTS: Unremarkable. PANCREAS: Unremarkable. No gross lesion or ductal dilatation. SPLEEN: Unremarkable. ADRENALS: Unremarkable. No mass. KIDNEYS AND URETERS: Unremarkable. No hydronephrosis. No solid mass. VASCULATURE: Unremarkable. No aortic aneurysm. BOWEL: Unremarkable. No obstruction. No gross mural thickening. APPENDIX: Normal appendix. PERITONEUM: Unremarkable. No free fluid. No free air. LYMPH NODES: Unremarkable. No enlarged lymph nodes. BLADDER: Unremarkable. REPRODUCTIVE: Unremarkable. BONES: No acute fracture. OTHER FINDINGS: None. IMPRESSION: Left lower lobe infiltrates.
[2018-05-05 08:38] LABS: TROPONIN I 0.04 ng/mL
--- NOTE | 2018-05-05 10:11 | CARD ---
APPROVED REPORT Date of service: 05/04/2018 EKG Measurement Heart [id number] <Conclusion> Normal sinus rhythm Minimal voltage criteria for LVH, may be normal variant Nonspecific ST and T wave abnormality Abnormal ECG
--- NOTE | 2018-05-05 11:39 | CP.PCM.CON ---
<MindaPaulie - Last Filed: 05/05/18 21:48> History of Present Illness - History of Present Illness History of Present Illness: [facility] Consult Note for Dr. Saini Ms. Cota is an 83-year-old female with a PMH of CVA, HTN, CAD, COPD, hypothyroidism who presented to the ED via EMS after being found on the floor face down by geospatial program management officer after neighbors called due to not having seen the patient for 2 days. Per ED nursing notes, GCS on presentation was 14 due to mild confusion. Head CT was done and showed a right basal ganglia subacute infarct with mild mass-effect and compression of the right lateral ventricle with mild soft tissue edema along the left ant-spheric scalp. In ED, aspirin 300 mg, Levaquin IVPB and NS at [address] of chest/abdomen/pelvis were done and showed left lower lobe infiltrates and so patient was started on aztreonam. CTA head and neck was done this morning, pending official reading. Echo and MRI of brain to be done (difficult to obtain information for MRI questionnaire) . The patient offers limited ROS due to being drowsy, unknown if at baseline. The patient does however state that she had a stroke last year, but continues to live alone. She has had multiple prior falls, including once where she fractured her L patella but regarding her most recent fall, she states that she put her right leg out and fell forward, but denies dizziness or loss of consciousness. The fall was unwitnessed. PMH: CVA (2017), [place] x2 (2013, 2014), vertigo, skin cancer,depression, hypothyroidism, vertigo PSH: b/l cataract surgery FHx: none SHx: never smoke, no drugs or ETOH Review of Systems - Review of Systems Systems not reviewed;Unavailable: Other (drowsy, poor historian) Past Patient History - Infectious Disease Hx of Infectious Diseases: None - Tetanus Immunizations Tetanus Immunization: Unknown - Past Medical History & Family History Past Medical History?: Yes - Past Social History Smoking Status: Never Smoked Home Situation {Lives}: Alone - CARDIAC Hx Cardiac Disorders: Yes Hx Angina: Yes Hx Heart Attack: Yes (2 [place]) Hx Hypertension: Yes Hx Pacemaker: No Hx Peripheral Vascular Disease: Yes - PULMONARY Hx Respiratory Disorders: Yes Hx Asthma: Yes Hx Chronic Obstructive Pulmonary Disease (COPD): Yes - NEUROLOGICAL Hx Paralysis: No Hx Vertigo: Yes - HEENT Hx HEENT Problems: Yes Hx Cataracts: Yes (had sx b/l) Hx Deafness: No Hx Difficulty Chewing: No Hx Epistaxis: No Hx Glaucoma: Yes Hx Macular Degeneration: No Other/Comment: cataract surgery - RENAL Hx Chronic Kidney Disease: No Hx Renal Failure: No - ENDOCRINE/METABOLIC Hx Endocrine Disorders: Yes Hx Hyperthyroidism: No Hx Hypothyroidism: Yes - HEMATOLOGICAL/ONCOLOGICAL Hx Anemia: Yes Hx Blood Transfusions: No - INTEGUMENTARY Hx Dermatological Problems: Yes Hx Basil Cell: No Hx Eczema: Yes Hx Melanoma: No Hx Psoriasis: No Hx Squamous Cell: No Other/Comment: skin cancer removed from the bridge of the nose. Patient does not know what type of skin cancer. 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 ) Hx Coronary Stent: Yes (x4) Hx Orthopedic Surgery: Yes - ANESTHESIA Hx Anesthesia: Yes Hx Anesthesia Reactions: No Hx Malignant Hyperthermia: No Meds Allergies/Adverse Reactions: Allergies Allergy/AdvReac Type Severity Reaction Status Date / Time lactase [From [employer]] Allergy CONGESTION Verified 05/04/18 17:14 Penicillins Allergy ANAPHYLAXIS Verified 05/04/18 17:14 - Medications Medications: Current Medications Albuterol/Ipratropium (Duoneb 3 Mg/0.5 Mg (3 Ml) Ud) 3 ml IH [id number] PRN PRN Reason: Shortness of Breath Stop: 05/07/18 22:50 Aspirin (Ecotrin) 81 mg PO DAILY [facility] Last Admin: 05/05/18 09:52 Dose: Not Given Atorvastatin Calcium (Lipitor) 40 mg PO DIN [facility] Docusate Sodium (Colace) 100 mg PO BID [facility] Last Admin: 05/05/18 09:52 Dose: Not Given Guaifenesin/Dextromethorphan (Robitussin Dm) 5 ml PO Q4H PRN PRN Reason: Cough Sodium Chloride (Sodium Chloride 0.9%) 1,000 mls @ 150 mls/hr IV .Q6H40M [facility] Last Admin: 05/05/18 08:16 Dose: 150 mls/hr Morphine Sulfate (Morphine) 1 mg IVP Q4H PRN PRN Reason: Pain, moderate (4-7) Pantoprazole Sodium (Protonix Inj) 40 mg IVP DAILY [facility] Physical Exam - Constitutional Appears: Non-toxic, No Acute Distress, Confused - Head Exam Head Exam: absent: ATRAUMATIC (siginificant edema and ecchymosis to right eye, orbital region) - Eye Exam Eye Exam: Periorbital swelling, Periorbital tenderness, PERRL. absent: Normal appearance - ENT Exam ENT Exam: Mucous Membranes Dry - Respiratory Exam Respiratory Exam: NORMAL BREATHING PATTERN. absent: Rales, Rhonchi - Cardiovascular Exam Cardiovascular Exam: RRR, +S1, +S2 - GI/Abdominal Exam GI & Abdominal Exam: Normal Bowel Sounds, Soft. absent: Distended - Extremities Exam Extremities exam: Positive for: joint swelling (old and new ecchymosis on knees b/l (L>R)). Negative for: full ROM (0/5 strength LUE/LLE; 5/5 RUE/RLE) - Neurological Exam Neurological exam: Altered (oriented x2 (person and time NOT place)) - Skin Skin Exam: Dry Results - Vital Signs Recent Vital Signs: Last Vital Signs Temp 97.6 F 05/05/18 06:00 Pulse 87 05/05/18 06:00 Resp 18 05/05/18 06:00 BP 151/64 H 05/05/18 06:00 Pulse Ox 94 L 05/05/18 06:00 - Labs Result Diagrams: 05/05/18 06:30 05/05/18 06:30 Labs: Laboratory Results - last 24 hr 05/05/18 05/05/18 05/05/18 06:30 06:30 06:30 WBC 13.8 H RBC 4.42 Hgb 13.8 D Hct 41.2 MCV 93.2 MCH 31.2 MCHC 33.5 RDW 13.8 Plt Count 176 MPV 9.4 Gran % 71.4 H Lymph % (Auto) 14.2 L [place] % (Auto) 14.3 H Eos % (Auto) 0.0 L Baso % (Auto) 0.1 Gran # 9.88 H Lymph # (Auto) 2.0 [place] # (Auto) 2.0 H Eos # (Auto) 0.0 Baso # (Auto) 0.02 PT INR APTT Sodium 144 Potassium 3.8 Chloride 109 H Carbon Dioxide 26 Anion Gap 13 BUN 33 H Creatinine 0.8 Est GFR ( Amer) > 60 Est GFR (Non-Af Amer) > 60 Random Glucose 133 H Calcium 8.5 Phosphorus 2.5 Magnesium 2.5 H Total Bilirubin 0.8 AST 76 H D ALT 47 Alkaline Phosphatase 79 Lactate Dehydrogenase 608 Total Creatine Kinase 1186 H CK-MB (CK-2) 6.5 H CK-MB (CK-2) % 0.5 L Troponin I 0.04 D Total Protein 6.6 Albumin 3.4 Globulin 3.2 Albumin/Globulin Ratio 1.1 Triglycerides 156 Cholesterol 230 H LDL Cholesterol Direct 136 H HDL Cholesterol 44 TSH 3rd Generation 1.49 Blood Type Confirm 05/05/18 05/05/18 06:30 06:30 WBC RBC Hgb Hct MCV MCH MCHC RDW Plt Count MPV Gran % Lymph % (Auto) [place] % (Auto) Eos % (Auto) Baso % (Auto) Gran # Lymph # (Auto) [place] # (Auto) Eos # (Auto) Baso # (Auto) PT 13.8 H INR 1.20 H APTT 36.4 Sodium Potassium Chloride Carbon Dioxide Anion Gap BUN Creatinine Est GFR ( Amer) Est GFR (Non-Af Amer) Random Glucose Calcium Phosphorus Magnesium Total Bilirubin AST ALT Alkaline Phosphatase Lactate Dehydrogenase Total Creatine Kinase CK-MB (CK-2) CK-MB (CK-2) % Troponin I Total Protein Albumin Globulin Albumin/Globulin Ratio Triglycerides Cholesterol LDL Cholesterol Direct HDL Cholesterol TSH 3rd Generation Blood Type Confirm A POSITIVE Assessment & Plan - Assessment and Plan (Free Text) Assessment: 83-year-old female with a PMH of CVA, HTN, CAD, COPD, hypothyroidism who presented to the ED via EMS after being found on the floor face down by geospatial program management officer, with imaging showing right basal ganglia subacute infarct with mild mass-effect and compression of the right lateral ventricle with moderate soft tissue edema. Patient was not a candidate for TPA. Mild rhabdomyolysis is noted with elevated CK. Plan: - MRI brain shows large R MCA territory acute infarct, foci at right basal ganglia suggestive of hemorrhage and mass-effect with approximately 4.7 right to left midline shift - CTA head/neck shows complete occlusion of right ICA and severe stenosis ( greater than 95%) of left ICA, and diminished flow in right MCA proximally - Echo showed mildly dilated LA, mild concentric LVH and normal systolic function with no obvious cardiac source of emboli - Neurology interventionalist consult placed for possible L ICA stent - hold ASA in light of hemorrhage noted on latest imaging - cont Lipitor - f/u CT tomorrow to evaluate for worsening of bleeding; can restart ASA if bleeding does not worsen - PT eval - maintain normotension - swallow eval prior to advancing diet - blood and urine cxs pending - cont IV hydration due to rhabdo - Further recs per Dr. Saini Case was reviewed and discussed with attending, Dr. Saini <Brenton Saini - Last Filed: 05/05/18 23:49> Meds - Medications Medications: Current Medications Albuterol/Ipratropium (Duoneb 3 Mg/0.5 Mg (3 Ml) Ud) 3 ml IH [id number] PRN PRN Reason: Shortness of Breath Stop: 05/07/18 22:50 Aspirin (Ecotrin) 81 mg PO DAILY [facility] Last Admin: 05/05/18 09:52 Dose: Not Given Aspirin (Aspirin Supp) 300 mg RC DAILY [facility] Last Admin: 05/05/18 18:58 Dose: 300 mg Atorvastatin Calcium (Lipitor) 40 mg PO DIN [facility] Last Admin: 05/05/18 18:59 Dose: Not Given Docusate Sodium (Colace) 100 mg PO BID [facility] Last Admin: 05/05/18 19:00 Dose: Not Given Guaifenesin/Dextromethorphan (Robitussin Dm) 5 ml PO Q4H PRN PRN Reason: Cough Sodium Chloride (Sodium Chloride 0.9%) 1,000 mls @ 150 mls/hr IV .Q6H40M [facility] Last Admin: 05/05/18 20:15 Dose: Not Given Morphine Sulfate (Morphine) 1 mg IVP Q4H PRN PRN Reason: Pain, moderate (4-7) Last Admin: 05/05/18 18:58 Dose: 1 mg Pantoprazole Sodium (Protonix Inj) 40 mg IVP DAILY [facility] Last Admin: 05/05/18 12:13 Dose: 40 mg Results - Vital Signs Recent Vital Signs: Last Vital Signs Temp 98.4 F 05/05/18 17:53 Pulse 76 05/05/18 17:53 Resp 18 05/05/18 17:53 BP 155/74 H 05/05/18 17:53 Pulse Ox 94 L 05/05/18 06:00 - Labs Result Diagrams: 05/05/18 06:30 05/05/18 06:30 Labs: Laboratory Results - last 24 hr 05/05/18 05/05/18 05/05/18 06:30 06:30 06:30 WBC 13.8 H RBC 4.42 Hgb 13.8 D Hct 41.2 MCV 93.2 MCH 31.2 MCHC 33.5 RDW 13.8 Plt Count 176 MPV 9.4 Gran % 71.4 H Lymph % (Auto) 14.2 L [place] % (Auto) 14.3 H Eos % (Auto) 0.0 L Baso % (Auto) 0.1 Gran # 9.88 H Lymph # (Auto) 2.0 [place] # (Auto) 2.0 H Eos # (Auto) 0.0 Baso # (Auto) 0.02 PT INR APTT Sodium 144 Potassium 3.8 Chloride 109 H Carbon Dioxide 26 Anion Gap 13 BUN 33 H Creatinine 0.8 Est GFR ( Amer) > 60 Est GFR (Non-Af Amer) > 60 POC Glucose (mg/dL) Random Glucose 133 H Hemoglobin A1c Calcium 8.5 Phosphorus 2.5 Magnesium 2.5 H Total Bilirubin 0.8 AST 76 H D ALT 47 Alkaline Phosphatase 79 Lactate Dehydrogenase 608 Total Creatine Kinase 1186 H CK-MB (CK-2) 6.5 H CK-MB (CK-2) % 0.5 L Troponin I 0.04 D Total Protein 6.6 Albumin 3.4 Globulin 3.2 Albumin/Globulin Ratio 1.1 Triglycerides 156 Cholesterol 230 H LDL Cholesterol Direct 136 H HDL Cholesterol 44 Procalcitonin TSH 3rd Generation 1.49 Urine Color Urine Appearance Urine pH Ur Specific [place] Urine Protein Urine Glucose (UA) Urine Ketones Urine Blood Urine Nitrate Urine Bilirubin Urine Urobilinogen Ur Leukocyte Esterase Urine RBC Urine WBC Ur Epithelial Cells Blood Type Confirm 05/05/18 05/05/18 05/05/18 06:30 06:30 06:30 WBC RBC Hgb Hct MCV MCH MCHC RDW Plt Count MPV Gran % Lymph % (Auto) [place] % (Auto) Eos % (Auto) Baso % (Auto) Gran # Lymph # (Auto) [place] # (Auto) Eos # (Auto) Baso # (Auto) PT 13.8 H INR 1.20 H APTT 36.4 Sodium Potassium Chloride Carbon Dioxide Anion Gap BUN Creatinine Est GFR ( Amer) Est GFR (Non-Af Amer) POC Glucose (mg/dL) Random Glucose Hemoglobin A1c Calcium Phosphorus Magnesium Total Bilirubin AST ALT Alkaline Phosphatase Lactate Dehydrogenase Total Creatine Kinase CK-MB (CK-2) CK-MB (CK-2) % Troponin I Total Protein Albumin Globulin Albumin/Globulin Ratio Triglycerides Cholesterol LDL Cholesterol Direct HDL Cholesterol Procalcitonin 0.15 L TSH 3rd Generation Urine Color Urine Appearance Urine pH Ur Specific [place] Urine Protein Urine Glucose (UA) Urine Ketones Urine Blood Urine Nitrate Urine Bilirubin Urine Urobilinogen Ur Leukocyte Esterase Urine RBC Urine WBC Ur Epithelial Cells Blood Type Confirm A POSITIVE 05/05/18 05/05/18 05/05/18 06:30 21:15 22:04 WBC RBC Hgb Hct MCV MCH MCHC RDW Plt Count MPV Gran % Lymph % (Auto) [place] % (Auto) Eos % (Auto) Baso % (Auto) Gran # Lymph # (Auto) [place] # (Auto) Eos # (Auto) Baso # (Auto) PT INR APTT Sodium Potassium Chloride Carbon Dioxide Anion Gap BUN Creatinine Est GFR ( Amer) Est GFR (Non-Af Amer) POC Glucose (mg/dL) 104 Random Glucose Hemoglobin A1c 6.0 Calcium Phosphorus Magnesium Total Bilirubin AST ALT Alkaline Phosphatase Lactate Dehydrogenase Total Creatine Kinase CK-MB (CK-2) CK-MB (CK-2) % Troponin I Total Protein Albumin Globulin Albumin/Globulin Ratio Triglycerides Cholesterol LDL Cholesterol Direct HDL Cholesterol Procalcitonin TSH 3rd Generation Urine Color Yellow Urine Appearance Clear Urine pH 6.0 Ur Specific [place] 1.025 Urine Protein 100 H Urine Glucose (UA) Negative Urine Ketones Negative Urine Blood Small H Urine Nitrate Negative Urine Bilirubin Negative Urine Urobilinogen 0.2 Ur Leukocyte Esterase Negative Urine RBC 15 - 20 Urine WBC 2 - 5 Ur Epithelial Cells 10 - 12 Blood Type Confirm Attending/Attestation - Attestation I have personally seen and examined this patient.: Yes I have fully participated in the care of the patient.: Yes I have reviewed all pertinent clinical information: Yes
--- NOTE | 2018-05-05 13:22 | CARD ---
APPROVED REPORT Date of service: 05/05/2018 EXAM: Two-dimensional and M-mode echocardiogram with Doppler and color Doppler. INDICATION CVA/TIA 2D DIMENSIONS Left Atrium (2D)4.1 (1.6-4.0cm)IVSd1.2 (0.7-1.1cm) LVDd4.2 (3.9-5.9cm)PWd1.4 (0.7-1.1cm) LVDs2.6 (2.5-4.0cm)FS (%) 37.9 % LVEF (%)68.4 (>50%) M-Mode DIMENSIONS Aortic Root3.10 (2.2-3.7cm)Aortic Cusp Exc.1.30 (1.5-2.0cm) Aortic Valve AoV Peak Njngibff083.0cm/sAoV VTI42.1cmAO Peak GR.20mmHg LVOT Peak Fozaoaoe564.0cm/sLVOT VTI21.20cmAO Mean GR.11mmHg Mitral Valve MV E Vcekoeif33.9cm/sMV A Zoilyftp033.0cm/sE/A ratio0.6 TDI Lateral E' Peak V4.58cm/sMedial E' Peak V5.95cm/sE/Lateral E'17.7 E/Medial E'13.6 Pulmonary Valve PV Peak Dlqmarwo651.0cm/sPV Peak Grad.6mmHg Tricuspid Valve TR Peak Tvukduct356vo/sRAP [id number] Peak Gr.12mmHg [id number] LEFT VENTRICLE The left ventricle is normal size. There is mild concentric left ventricular hypertrophy. The left ventricular function is normal. The left ventricular ejection fraction is within the normal range. There is normal LV segmental wall motion. RIGHT VENTRICLE The right ventricle is normal size. The right ventricular systolic function is normal. ATRIA The left atrium is mildly dilated. The right atrium size is normal. The interatrial septum is intact with no evidence for an atrial septal defect. AORTIC VALVE The aortic valve is mildly sclerotic. There is no aortic valvular stenosis. MITRAL VALVE The mitral valve is normal in structure. There is no mitral valve regurgitation noted. TRICUSPID VALVE The tricuspid valve is normal in structure. There is mild tricuspid regurgitation. PULMONIC VALVE The pulmonic valve is not well visualized. GREAT VESSELS The aortic root is normal in size. The IVC is normal in size and collapses >50% with inspiration. PERICARDIAL EFFUSION There is no pleural effusion. There is no pericardial effusion. <Conclusion> Mildly dilated LA. Normal LV size and systolic function. Mild concentric LVH. Mild TR. No obvious cardiac source of embolus. If clinical suspiciion is high, consider PETR imaging.
--- NOTE | 2018-05-05 14:42 | CP.PCM.PN ---
<Adri Woods - Last Filed: 05/05/18 16:59> Subjective - Date & Time of Evaluation Date of Evaluation: 05/05/18 Time of Evaluation: 08:00 - Subjective Subjective: pgy-[address] Cardenas Pt thought that she was at home. no acute complain overnight Objective - Vital Signs/Intake and Output Vital Signs (last 24 hours): Temp Pulse Resp BP Pulse Ox 98.2 F 77 18 191/76 H 94 L 05/05/18 12:00 05/05/18 12:00 05/05/18 12:00 05/05/18 12:00 05/05/18 06:00 Intake and Output: 05/05/18 05/05/18 06:59 18:59 Intake Total 1500 Balance 1500 - Medications Medications: Current Medications Albuterol/Ipratropium (Duoneb 3 Mg/0.5 Mg (3 Ml) Ud) 3 ml IH [id number] PRN PRN Reason: Shortness of Breath Stop: 05/07/18 22:50 Aspirin (Ecotrin) 81 mg PO DAILY [facility] Last Admin: 05/05/18 09:52 Dose: Not Given Atorvastatin Calcium (Lipitor) 40 mg PO DIN [facility] Docusate Sodium (Colace) 100 mg PO BID [facility] Last Admin: 05/05/18 09:52 Dose: Not Given Guaifenesin/Dextromethorphan (Robitussin Dm) 5 ml PO Q4H PRN PRN Reason: Cough Sodium Chloride (Sodium Chloride 0.9%) 1,000 mls @ 150 mls/hr IV .Q6H40M [facility] Last Admin: 05/05/18 08:16 Dose: 150 mls/hr Morphine Sulfate (Morphine) 1 mg IVP Q4H PRN PRN Reason: Pain, moderate (4-7) Pantoprazole Sodium (Protonix Inj) 40 mg IVP DAILY [facility] Last Admin: 05/05/18 12:13 Dose: 40 mg - Labs Labs: 05/05/18 06:30 05/05/18 06:30 PT 13.8 SECONDS (9.4-12.5) H 05/05/18 06:30 INR 1.20 (0.93-1.08) H 05/05/18 06:30 APTT 36.4 Seconds (25.1-36.5) 05/05/18 06:30 - Constitutional Appears: No Acute Distress - Head Exam Additional comments: Bruising and scab left side of head & face; abrasion to left eyelid - Eye Exam Eye Exam: EOMI, Normal appearance. absent: Scleral icterus Pupil Exam: NORMAL ACCOMODATION - ENT Exam ENT Exam: Mucous Membranes Moist - Neck Exam Additional comments: supple - Respiratory Exam Respiratory Exam: Clear to Ausculation Bilateral. absent: Rales, Rhonchi, Wheezes - Cardiovascular Exam Cardiovascular Exam: REGULAR RHYTHM, +S1, +S2 - GI/Abdominal Exam GI & Abdominal Exam: Soft, Normal Bowel Sounds. absent: Tenderness - Neurological Exam Neurological Exam: Alert, Awake. absent: Oriented x3 Additional comments: Left sided facial droop slurred speech Left arm is flaccid paralysis weakness left UE/LE - Psychiatric Exam Psychiatric exam: Flat Affect, Normal Mood - Skin Skin Exam: Dry, Warm Assessment and Plan - Assessment and Plan (Free Text) Plan: Ms. Cota, 83 F, with PMH of CVA (2016). vertigo, CAD x 4 stents, COPD, hypothyroidism, skin cancer was found face down on the floor. GCS on presentation was 14 due to mild confusion. Head CT (05/04) showed a right basal ganglia subacute infarct with mild mass-effect and compression of the right lateral ventricle. CT chest/abdomen/pelvis (05/04) showed left lower lobe infiltrates, and patient was started on aztreonam. A: Basal ganglia infarct, CVA LLL Community acquired PNA vs aspiration pneumonitis Rhadhomyolysis Rib fracture - non displaced fx of left 10th rib. no pneumothorax. Hx Falls Hx COPD Hx hypothyroidism Penicillin allergy P: Telemetry, ASA 325, lipitor 40 NPO pending speech/swallow eval PT/OT Follow A1C and lipid panel Observe off antibiotics Follow sputum cx, procalc, blood cx duoneb Continue NS 0.9. Strict i/o, trend CK,Bun/Cre Oxygen NC prn incentive spirometry pain management cough meds prn duoneb PRN Levothyroxin. f/u TSH, free T3 Consult: Dr Anderson s/r/d/w Dr. Cardenas <Isrrael Cardenas S - Last Filed: 05/05/18 19:21> Objective - Vital Signs/Intake and Output Vital Signs (last 24 hours): Temp Pulse Resp BP Pulse Ox 98.4 F 76 18 155/74 H 94 L 05/05/18 17:53 05/05/18 17:53 05/05/18 17:53 05/05/18 17:53 05/05/18 06:00 Intake and Output: 05/05/18 05/05/18 06:59 18:59 Intake Total 1500 Balance 1500 - Medications Medications: Current Medications Albuterol/Ipratropium (Duoneb 3 Mg/0.5 Mg (3 Ml) Ud) 3 ml IH [id number] PRN PRN Reason: Shortness of Breath Stop: 05/07/18 22:50 Aspirin (Ecotrin) 81 mg PO DAILY [facility] Last Admin: 05/05/18 09:52 Dose: Not Given Aspirin (Aspirin Supp) 300 mg RC DAILY [facility] Atorvastatin Calcium (Lipitor) 40 mg PO DIN [facility] Docusate Sodium (Colace) 100 mg PO BID [facility] Last Admin: 05/05/18 09:52 Dose: Not Given Guaifenesin/Dextromethorphan (Robitussin Dm) 5 ml PO Q4H PRN PRN Reason: Cough Sodium Chloride (Sodium Chloride 0.9%) 1,000 mls @ 150 mls/hr IV .Q6H40M [facility] Last Admin: 05/05/18 08:16 Dose: 150 mls/hr Morphine Sulfate (Morphine) 1 mg IVP Q4H PRN PRN Reason: Pain, moderate (4-7) Pantoprazole Sodium (Protonix Inj) 40 mg IVP DAILY [facility] Last Admin: 05/05/18 12:13 Dose: 40 mg - Labs Labs: 05/05/18 06:30 05/05/18 06:30 PT 13.8 SECONDS (9.4-12.5) H 05/05/18 06:30 INR 1.20 (0.93-1.08) H 05/05/18 06:30 APTT 36.4 Seconds (25.1-36.5) 05/05/18 06:30 Assessment and Plan - Assessment and Plan (Free Text) Plan: Pt seen and examined. I have reviewed the note of the medical data analyst and agree with it. I have discussed the assessment and plan with the resident. I have reviewed the patient's labs and medications. Pt with acute cva. She has L arm hemiplegia. Pt not responding well. Neuro following. She has a rib fx. Prognosis is guarded.
--- NOTE | 2018-05-05 14:58 | CT ---
Date of service: 05/05/2018 PROCEDURE: CT Angiography of the neck with contrast HISTORY: cerebral infarction COMPARISON: None available. TECHNIQUE: Contiguous axial images of the neck were obtained from the level of the skull-base to the superior mediastinum in the arteriographic phase of enhancement. Coronal and sagittal reformats or also generated. IV contrast dose: 150 cc of Omni 350 Radiation Dose - DLP: 510 mGy-cm This CT exam was performed using one or more of the following dose reduction techniques: Automated exposure control, adjustment of the mA and/or kV according to patient size, and/or use of iterative reconstruction technique. FINDINGS: RIGHT CAROTID ARTERIES: There is heavily calcified plaque at the carotid bifurcation with complete occlusion of the internal carotid LEFT CAROTID ARTERIES: Heavily calcified plaque with severe stenosis of the internal carotid VERTEBRAL ARTERIES: Right Vertebral Artery: Normal. Left Vertebral Artery: Normal. OTHER FINDINGS: None. IMPRESSION: Occlusion of the right internal carotid. Severe stenosis of the left internal carotid probably greater than 95 percent PROCEDURE: CT Angiography of the Brain. HISTORY: cerebral infarction COMPARISON: None available. TECHNIQUE: CT angiography of the intracranial arteries was performed. Coronal and sagittal maximum intensity projection reformated images were generated. This CT exam was performed using one or more of the following dose reduction techniques: Automated exposure control, adjustment of the mA and/or kV according to patient size, and/or use of iterative reconstruction technique. 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 Diminished flow in the right middle cerebral ANTERIOR CEREBRAL ARTERIES: Unremarkable. A1 and A2 segments are widely patent. Smaller distal branches unremarkable, as visualized. MIDDLE CEREBRAL ARTERIES: Diminished flow in the right middle cerebral proximally POSTERIOR CIRCULATION: Basilar Artery: Unremarkable. Distal Vertebral Arteries: Unremarkable. Posterior Cerebral Arteries: Unremarkable. Posterior Inferior Cerebellar Arteries: Unremarkable. ANEURYSM/ VASCULAR MALFORMATIONS: None. 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 Diminished flow in the proximal right middle cerebral artery IMPRESSION: Unremarkable CT Angiography of the Brain.
[2018-05-05] MEDS: Morphine 2 mg/ml ISec IVP PRN (18:58)
--- NOTE | 2018-05-05 19:22 | MRI ---
Date of service: 05/05/2018 PROCEDURE: MRI BRAIN WITHOUT CONTRAST HISTORY: cerebral infarction COMPARISON: None. TECHNIQUE: Multiplanar, multisequence MR images of the brain were obtained without intravenous contrast enhancement. FINDINGS: HEMORRHAGE: Foci of blooming artifact noted at the right basal ganglia coronal radiata likely represent foci of hemorrhage. The possibility of hemorrhagic infarction or hemorrhagic conversion of the acute infarction should be considered. DWI: Large diffusion restriction at the right brain including the right basal ganglia right coronal radiata right temporal frontal parietal lobe suggestive of large right MCA territory infarction. BRAIN PARENCHYMA: There is mild mass effect on the lateral ventricle and mild [id number] midline shift measures 4.7 millimeter. Mild atrophy and chronic microvascular white matter ischemic disease is also noted. VENTRICLES: Unremarkable. No hydrocephalus. CRANIUM: Unremarkable. ORBITS: Grossly unremarkable. PARANASAL SINUSES/MASTOIDS: Clear VASCULAR SYSTEM: Skull base flow voids intact. OTHER FINDINGS: None. IMPRESSION: Large right MCA territory acute infarction. Foci of blooming artifact and susceptibility noted at the right basal ganglia and edwards radiata suggestive of hemorrhage follow-up noncontrast CT is recommended. Mass effect and approximately 4.7 hactf-ky-eiet midline shift.
[2018-05-05 21:26] LABS: URINE BILIRUBIN NEGATIVE (NEGATIVE); URINE BLOOD SMALL (NEGATIVE); URINE GLUCOSE (UA) NEGATIVE (NEGATIVE); URINE LEUKOCYTE ESTERASE NEGATIVE Leu/uL (NEGATIVE); URINE PROTEIN 100 mg/dL (<30 mg/dL); URINE UROBILINOGEN 0.2 E.U./dL (<1 E.U./dL)
[2018-05-05 21:31] LABS: URINE APPEARANCE CLEAR (CLEAR); URINE COLOR YELLOW (YELLOW)
[2018-05-05 21:32] LABS: URINE RBC 15 - 20 /hpf (0-2)
[2018-05-06] MEDS: Sodium Chloride 0.9% 1,000 ML IV SCH (03:00)
[2018-05-06 07:01] LABS: BASO # 0.03 K/mm3 (0.0-2.0); BASO % 0.2 % (0.0-3.0); GRAN # 8.92 (1.4-6.5); HEMOGLOBIN 12.3 g/dL (12.0-16.0); LYMPH # 2.1 (1.2-3.4); LYMPH % 16.5 % (22.0-35.0); MEAN CELL VOLUME 94.6 fl (80.0-105.0); MEAN CORPUSCULAR HEMOGLOBIN 30.1 pg (25.0-35.0); MEAN CORPUSCULAR HGB CONC 31.8 g/dl (31.0-37.0); MEAN PLATELET VOLUME 9.4 fl (7.0-11.0); MONO # 1.6 (0.1-0.6); MONO % 12.3 % (1.0-6.0); RBC 4.09 10^6/uL (3.5-6.1); RED CELL DISTRIBUTION WIDTH 14.1 % (11.5-14.5); WHITE BLOOD COUNT 12.6 10^3/ul (4.5-11.0)
[2018-05-06 07:26] LABS: ALT/SGPT 57 U/L (7-56); AST/SGOT 75 U/L (14-36); BLOOD UREA NITROGEN 26 mg/dL (7-21); CALCIUM 8.2 mg/dL (8.4-10.5); GFR AFRICAN-AMERICAN > 60; GFR NON-AFRICAN AMERICAN > 60
[2018-05-06] MEDS ORDERED: Sodium Chloride 0.9% 1,000 ML IV SCH (07:31)
[2018-05-06 08:25] LABS: CK MB% 0.6 % (2.5-3.0); CK-MB 6.6 ng/mL (0.0-3.6)
--- NOTE | 2018-05-06 10:19 | CP.PCM.PN ---
Subjective - Date & Time of Evaluation Date of Evaluation: 05/06/18 Time of Evaluation: 10:13 - Subjective Subjective: PGY-[address] Cardenas Pt is able to clean mouth using swab in R hand. No other acute complaint Objective - Vital Signs/Intake and Output Vital Signs (last 24 hours): Temp Pulse Resp BP Pulse Ox 98.4 F 76 20 157/77 H 93 L 05/06/18 05:37 05/06/18 05:38 05/06/18 05:37 05/06/18 05:37 05/06/18 05:37 Intake and Output: 05/06/18 05/06/18 06:59 18:59 Intake Total 1800 Output Total 500 Balance 1300 - Medications Medications: Current Medications Albuterol/Ipratropium (Duoneb 3 Mg/0.5 Mg (3 Ml) Ud) 3 ml IH [id number] PRN PRN Reason: Shortness of Breath Stop: 05/07/18 22:50 Aspirin (Ecotrin) 81 mg PO DAILY [facility] Last Admin: 05/05/18 09:52 Dose: Not Given Atorvastatin Calcium (Lipitor) 40 mg PO DIN [facility] Last Admin: 05/05/18 18:59 Dose: Not Given Docusate Sodium (Colace) 100 mg PO BID [facility] Last Admin: 05/06/18 09:00 Dose: Not Given Guaifenesin/Dextromethorphan (Robitussin Dm) 5 ml PO Q4H PRN PRN Reason: Cough Sodium Chloride (Sodium Chloride 0.9%) 1,000 mls @ 50 mls/hr IV .Q20H [facility] Morphine Sulfate (Morphine) 1 mg IVP Q4H PRN PRN Reason: Pain, moderate (4-7) Last Admin: 05/05/18 18:58 Dose: 1 mg Pantoprazole Sodium (Protonix Inj) 40 mg IVP DAILY [facility] Last Admin: 05/05/18 12:13 Dose: 40 mg - Labs Labs: 05/06/18 06:30 05/06/18 06:30 PT 13.8 SECONDS (9.4-12.5) H 05/05/18 06:30 INR 1.20 (0.93-1.08) H 05/05/18 06:30 APTT 36.4 Seconds (25.1-36.5) 05/05/18 06:30 - Constitutional Appears: No Acute Distress - Head Exam Head Exam: NORMAL INSPECTION, NORMOCEPHALIC Additional comments: ecchymosis L forehead, old - Eye Exam Eye Exam: EOMI, Normal appearance, PERRL. absent: Scleral icterus - ENT Exam ENT Exam: Mucous Membranes Moist - Neck Exam Additional comments: supple - Respiratory Exam Respiratory Exam: Clear to Ausculation Bilateral. absent: Rales, Rhonchi, Wheezes - Cardiovascular Exam Cardiovascular Exam: REGULAR RHYTHM, +S1, +S2 - GI/Abdominal Exam GI & Abdominal Exam: Soft, Normal Bowel Sounds. absent: Tenderness - Extremities Exam Extremities Exam: Normal Capillary Refill. absent: Calf Tenderness - Neurological Exam Neurological Exam: Alert, Awake Neuro motor strength exam: Left Upper Extremity: 0, Right Upper Extremity: 4, Left Lower Extremity: 0, Right Lower Extremity: 4 Additional comments: L facial droop Pupil size 3mm b/l - Psychiatric Exam Psychiatric exam: Normal Affect, Normal Mood - Skin Skin Exam: Dry, Warm Assessment and Plan - Assessment and Plan (Free Text) Plan: Ms. Cota, 83 F, with PMH of CVA (2017), vertigo, CAD x 4 stents, COPD, hypothyroidism, skin cancer was found face down on the floor after unseen by neighbors for several days. GCS on presentation was 14 due to mild confusion. 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 She remains L hemiplegia & dysphagic, failed swallow evaluation on 05/05. A: Large R MCA infarct likely from occluded R ICA Mass effect with midline shift, 4mm, likely from edema and hemorrhagic conversion L hemiplegia & dysphagia failed swallow eval - MRI (05/05): large R MCA territory acute infarct, foci at R basal ganglia, likely hemorrhage and mass-effect with approximately 4.7 right to left midline shift. - Echo (05/05) showed normal EF, no obvious cardiac source of emboli - CTA head/neck (05/05)s complete occlusion of R ICA and severe stenosis ( greater than 95%) of left ICA - Repeat CT (05/06) shows similar mass effect on R lateral ventrical, and similar mid-line shift 4mm Questionable LLL Community acquired PNA vs aspiration pneumonitis - CT chest/abdomen/pelvis (05/04) showed left lower lobe infiltrates Rhadhomyolysis Rib fracture - non displaced fx of left 10th rib. no pneumothorax. Hx Falls Hx COPD Hx hypothyroidism Penicillin allergy multiple superficial wounds likely from fall DNR/DNI P: For stroke, neuro check q6, noted change in pupillary size for possible herniation Pending neuro re: decadron vs mannitol vs observation. HOB >45. Maintain nomotensive D/C Telemetry; Hold ASA. Continue lipitor 40 PT/OT Turn Q2, multipudus boot to prevent pressure ulcer No plan for R ICA stent placement for now. As for dysphagia, For possible PNA. Observe off antibiotics. Follow sputum cx, procalc, blood cx. Continue duoneb. Oxygen NC prn For rib fracture, cough meds prn. incentive spirometry For rhabdo, Continue NS 0.9 @ decrease rate of 50cc/hr in the setting of brain mid-line shift Strict i/o, trend CK,Bun/Cre For hypothyroid, Levothyroxin. f/u TSH, free T3 Prophylaxis: SCDs as tolerated due to wounds/abrasion; Protonix. Contraindicated to VTE for poss hemorrhagic conversion of the stroke Prognosis: guarded Discharge planning: - Family is looking for subacute into possible LTC. - Daughter may be looking at [facility] or [facility] will follow up. - Per neurosurg, for now. no plan to revascularize R ICA as it is fulling occluded in the setting of disabiling stroke. - After the acute period, repeat CTA head and neck when pt recovers, if R ICA is still occluded but re-opens, then revascularization may have a role, Or may consider stenting highly stenotic contralateral L ICA to aid in cerbral perfusion. Consult: Dr Anderson; Palliative; Dr Coles, neurosurg s/r/d/w Dr. Cardenas
--- NOTE | 2018-05-06 11:00 | CP.PCM.PN ---
<Paulie Perla - Last Filed: 05/06/18 15:29> Subjective - Date & Time of Evaluation Date of Evaluation: 05/06/18 Time of Evaluation: 09:00 - Subjective Subjective: Paulie Perla PGY2 Neurology Progress Note for Dr. Saini Patient was seen and examined at bedside. She is more alert today and is offering better history. She does state that she was on blood thinners ( ASA/ Plavix) in 2013/2014 when she suffered 2 IL's, however, she has not been on blood thinners since that time. She is able to recall where she is and why she is here. She is still unable to move her LUE/LLL but is more alert today. she denies chest pain, n/v, headaches, changes in vision or shortness of breath. Patient was seen by speech therapist yesterday who recommended NPO and to consider alternative means of nutrition and hydration. Strict oral care and HOB upright at 45 degrees pr higher for saliva management. PT also saw the patient and recommended LATOYA because she would benefit from skilled PT services to address her deficits. However, patient seems more responsive today, and will require re-evaluation of swallowing and continued physical therapy. Objective - Vital Signs/Intake and Output Vital Signs (last 24 hours): Temp Pulse Resp BP Pulse Ox 98.4 F 76 20 157/77 H 93 L 05/06/18 05:37 05/06/18 05:38 05/06/18 05:37 05/06/18 05:37 05/06/18 05:37 Intake and Output: 05/06/18 05/06/18 06:59 18:59 Intake Total 1800 Output Total 500 Balance 1300 - Medications Medications: Current Medications Albuterol/Ipratropium (Duoneb 3 Mg/0.5 Mg (3 Ml) Ud) 3 ml IH [id number] PRN PRN Reason: Shortness of Breath Stop: 05/07/18 22:50 Aspirin (Ecotrin) 81 mg PO DAILY [facility] Last Admin: 05/05/18 09:52 Dose: Not Given Atorvastatin Calcium (Lipitor) 40 mg PO DIN [facility] Last Admin: 05/05/18 18:59 Dose: Not Given Docusate Sodium (Colace) 100 mg PO BID [facility] Last Admin: 05/06/18 09:00 Dose: Not Given Guaifenesin/Dextromethorphan (Robitussin Dm) 5 ml PO Q4H PRN PRN Reason: Cough Sodium Chloride (Sodium Chloride 0.9%) 1,000 mls @ 50 mls/hr IV .Q20H [facility] Morphine Sulfate (Morphine) 1 mg IVP Q4H PRN PRN Reason: Pain, moderate (4-7) Last Admin: 05/05/18 18:58 Dose: 1 mg Pantoprazole Sodium (Protonix Inj) 40 mg IVP DAILY [facility] Last Admin: 05/05/18 12:13 Dose: 40 mg - Labs Labs: 05/06/18 06:30 05/06/18 06:30 PT 13.8 SECONDS (9.4-12.5) H 05/05/18 06:30 INR 1.20 (0.93-1.08) H 05/05/18 06:30 APTT 36.4 Seconds (25.1-36.5) 05/05/18 06:30 - Constitutional Appears: Well, Non-toxic, No Acute Distress - Head Exam Head Exam: NORMAL INSPECTION. absent: ATRAUMATIC (siginficant edema and ecchymosis to left eye, orbital region) - Eye Exam Eye Exam: EOMI, Periorbital swelling, Periorbital tenderness, PERRL. absent: Normal appearance - ENT Exam ENT Exam: Mucous Membranes Moist - Neck Exam Neck Exam: Normal Inspection - Respiratory Exam Respiratory Exam: Decreased Breath Sounds. absent: Rales, Rhonchi, Wheezes, Respiratory Distress - Cardiovascular Exam Cardiovascular Exam: RRR, +S1, +S2 - GI/Abdominal Exam GI & Abdominal Exam: Soft, Normal Bowel Sounds. absent: Distended, Tenderness - Exam Additional comments: markham in place - Extremities Exam Extremities Exam: Joint Swelling (old and new ecchymosis on knees b/l (L>R)). absent: Full ROM (0/5 strength LUE/LLE; 5/5 RUE/RLE), Pedal Edema - Back Exam Additional comments: erythema noted on L sarcal region - Neurological Exam Neurological Exam: Alert, Awake, Motor Sensory Deficit, Oriented x3 Neuro motor strength exam: Left Upper Extremity: 0, Right Upper Extremity: 5, Left Lower Extremity: 0, Right Lower Extremity: 5 - Psychiatric Exam Psychiatric exam: Normal Mood - Skin Skin Exam: Erythema (L sacrum), Warm Assessment and Plan - Assessment and Plan (Free Text) Assessment: 83-year-old female with a PMH of CVA, HTN, CAD, COPD, hypothyroidism who presented to the ED via EMS after being found on the floor face down by ehs teacher, with imaging showing right basal ganglia subacute infarct with mild mass-effect and compression of the right lateral ventricle with moderate soft tissue edema. Patient was not a candidate for TPA. MRI brain shows large R MCA territory acute infarct, foci at right basal ganglia suggestive of hemorrhage and mass- effect with approximately 4.7 right to left midline shift. CTA head/neck shows complete occlusion of right ICA and severe stenosis (greater than 95%) of left ICA, and diminished flow in right MCA proximally. Echo showed mildly dilated LA , mild concentric LVH and normal systolic function with no obvious cardiac source of emboli. Mild rhabdomyolysis is noted with elevated CK, but is improving. Plan: - CT Head today shows similar mass effect on right lateral ventricle as on prior CT study and leftward midline shift similar to MRI - will restart ASA given high risk of another episode of thrombosis/CVA - Neurology interventionalist consulted, recommend holding off on intervention until acute phase passes and to see if the right ICA remains occluded (consider stent) or opens up (consider revascularization) - cont Lipitor - Speech & Swallow to re-evaluate patient - PT recommending LATOYA; continue PT while in house - speech eval recommending NPO; continue exercises while in house - maintain normotension - NPO - blood and urine cxs pending - cont IV hydration due to rhabdo - Patient was made DNR/DNI - Further recs per Dr. Saini Case was reviewed and discussed with attending, Dr. Saini <Brenton Saini - Last Filed: 05/06/18 18:31> Objective - Vital Signs/Intake and Output Vital Signs (last 24 hours): Temp Pulse Resp BP Pulse Ox 98.0 F 78 19 167/59 H 93 L 05/06/18 17:39 05/06/18 17:39 05/06/18 17:39 05/06/18 17:39 05/06/18 17:39 Intake and Output: 05/06/18 05/06/18 06:59 18:59 Intake Total 1800 Output Total 500 Balance 1300 - Medications Medications: Current Medications Albuterol/Ipratropium (Duoneb 3 Mg/0.5 Mg (3 Ml) Ud) 3 ml IH [id number] PRN PRN Reason: Shortness of Breath Stop: 05/07/18 22:50 Aspirin (Ecotrin) 81 mg PO DAILY [facility] Last Admin: 05/05/18 09:52 Dose: Not Given Aspirin (Aspirin Supp) 300 mg RC DAILY [facility] Atorvastatin Calcium (Lipitor) 40 mg PO DIN [facility] Last Admin: 05/06/18 17:22 Dose: Not Given Docusate Sodium (Colace) 100 mg PO BID [facility] Last Admin: 05/06/18 18:27 Dose: Not Given Guaifenesin/Dextromethorphan (Robitussin Dm) 5 ml PO Q4H PRN PRN Reason: Cough Sodium Chloride (Sodium Chloride 0.9%) 1,000 mls @ 50 mls/hr IV .Q20H [facility] Morphine Sulfate (Morphine) 1 mg IVP Q4H PRN PRN Reason: Pain, moderate (4-7) Last Admin: 05/05/18 18:58 Dose: 1 mg Pantoprazole Sodium (Protonix Inj) 40 mg IVP DAILY [facility] Last Admin: 05/06/18 12:15 Dose: 40 mg - Labs Labs: 05/06/18 06:30 05/06/18 06:30 PT 13.8 SECONDS (9.4-12.5) H 05/05/18 06:30 INR 1.20 (0.93-1.08) H 05/05/18 06:30 APTT 36.4 Seconds (25.1-36.5) 05/05/18 06:30 Attending/Attestation - Attestation I have personally seen and examined this patient.: Yes I have fully participated in the care of the patient.: Yes I have reviewed all pertinent clinical information, including history, physical exam and plan: Yes
--- NOTE | 2018-05-06 11:48 | CT ---
Date of service: 05/06/2018 PROCEDURE: CT HEAD WITHOUT CONTRAST. HISTORY: evaluate for bleeding COMPARISON: MRI the brain 05/05/2018. ; CTA head/ neck bundle 05/05/[address] of the head May 04 2018 TECHNIQUE: Axial computed tomography images were obtained through the head/brain without intravenous contrast. Radiation dose: Total exam DLP = 865 mGy-cm. This CT exam was performed using one or more of the following dose reduction techniques: Automated exposure control, adjustment of the mA and/or kV according to patient size, and/or use of iterative reconstruction technique. FINDINGS: HEMORRHAGE: The right basal ganglionic hemorrhagic infarct is renoted. BRAIN: There is mass effect on the right lateral ventricle and leftward approximately 4 mm midline shift. Since the prior CT exams there is interval hypodensity in the posterior right temporal parietal lobe compatible with infarct changes of a large right MCA territory acute infarct. This is also compatible with the MR findings reported. No new areas of hemorrhage seen. VENTRICLES: . No hydrocephalus. CALVARIUM: Unremarkable. PARANASAL SINUSES: Unremarkable as visualized. No significant inflammatory changes. MASTOID AIR CELLS: Unremarkable as visualized. No inflammatory changes. OTHER FINDINGS: None. IMPRESSION: Imaging findings compatible with a large right middle cerebral arterial vascular infarction with edema with right basal ganglion hemorrhagic component. The mass effect on the right lateral ventricle is similar with the prior CT study and the leftward midline shift is similar to the MR exam the now approximately 4 mm. Continued surveillance recommended.
--- NOTE | 2018-05-06 13:00 | CP.PCM.CON ---
History of Present Illness - History of Present Illness History of Present Illness: NEURO INTERVENTIONAL CONSULTATION The patient is an 83 year old female with a signifigant PMH of stroke, HTN, COPD , and thyroid disease. Found by EMS on floor after not having been seen for several days. Neuroimaging has demonstrated a right MCA territory infarction with mass effect and some hemorrhage. CTA showed a complete right ICA occlusion with high grade , calcific stenosis of the left ICA. Consulted for management of Carotid disease. Review of Systems - Review of Systems Systems not reviewed;Unavailable: Acuity of Condition - Neurological Neurological: As Per HPI Past Patient History - Infectious Disease Hx of Infectious Diseases: None - Tetanus Immunizations Tetanus Immunization: Unknown - Past Medical History & Family History Past Medical History?: Yes - Past Social History Smoking Status: Never Smoked Home Situation {Lives}: Alone - CARDIAC Hx Cardiac Disorders: Yes Hx Angina: Yes Hx Heart Attack: Yes (2 [place]) Hx Hypertension: Yes Hx Pacemaker: No Hx Peripheral Vascular Disease: Yes - PULMONARY Hx Respiratory Disorders: Yes Hx Asthma: Yes Hx Chronic Obstructive Pulmonary Disease (COPD): Yes - NEUROLOGICAL Hx Paralysis: No Hx Vertigo: Yes - HEENT Hx HEENT Problems: Yes Hx Cataracts: Yes (had sx b/l) Hx Deafness: No Hx Difficulty Chewing: No Hx Epistaxis: No Hx Glaucoma: Yes Hx Macular Degeneration: No Other/Comment: cataract surgery - RENAL Hx Chronic Kidney Disease: No Hx Renal Failure: No - ENDOCRINE/METABOLIC Hx Endocrine Disorders: Yes Hx Hyperthyroidism: No Hx Hypothyroidism: Yes - HEMATOLOGICAL/ONCOLOGICAL Hx Anemia: Yes Hx Blood Transfusions: No - INTEGUMENTARY Hx Dermatological Problems: Yes Hx Basil Cell: No Hx Eczema: Yes Hx Melanoma: No Hx Psoriasis: No Hx Squamous Cell: No Other/Comment: skin cancer removed from the bridge of the nose. Patient does not know what type of skin cancer. 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 ) Hx Coronary Stent: Yes (x4) Hx Orthopedic Surgery: Yes - ANESTHESIA Hx Anesthesia: Yes Hx Anesthesia Reactions: No Hx Malignant Hyperthermia: No Meds Allergies/Adverse Reactions: Allergies Allergy/AdvReac Type Severity Reaction Status Date / Time lactase [From [employer]] Allergy CONGESTION Verified 05/04/18 17:14 Penicillins Allergy ANAPHYLAXIS Verified 05/04/18 17:14 - Medications Medications: Current Medications Albuterol/Ipratropium (Duoneb 3 Mg/0.5 Mg (3 Ml) Ud) 3 ml IH [id number] PRN PRN Reason: Shortness of Breath Stop: 05/07/18 22:50 Aspirin (Ecotrin) 81 mg PO DAILY [facility] Last Admin: 05/05/18 09:52 Dose: Not Given Atorvastatin Calcium (Lipitor) 40 mg PO DIN [facility] Last Admin: 05/05/18 18:59 Dose: Not Given Docusate Sodium (Colace) 100 mg PO BID [facility] Last Admin: 05/06/18 09:00 Dose: Not Given Guaifenesin/Dextromethorphan (Robitussin Dm) 5 ml PO Q4H PRN PRN Reason: Cough Sodium Chloride (Sodium Chloride 0.9%) 1,000 mls @ 50 mls/hr IV .Q20H [facility] Morphine Sulfate (Morphine) 1 mg IVP Q4H PRN PRN Reason: Pain, moderate (4-7) Last Admin: 05/05/18 18:58 Dose: 1 mg Pantoprazole Sodium (Protonix Inj) 40 mg IVP DAILY [facility] Last Admin: 05/06/18 12:15 Dose: 40 mg Physical Exam - Additional Findings Additional findings: NEURO EXAM In bed, arousable to verbal stimuli Follows commands left facial droop dense left arm and leg weakness moves right arm and leg off bed. Results - Vital Signs Recent Vital Signs: Last Vital Signs Temp 98.4 F 05/06/18 05:37 Pulse 76 05/06/18 05:38 Resp 20 05/06/18 05:37 BP 157/77 H 05/06/18 05:37 Pulse Ox 93 L 05/06/18 05:37 - Labs Result Diagrams: 05/06/18 06:30 05/06/18 06:30 Labs: Laboratory Results - last 24 hr 05/05/18 05/05/18 05/06/18 21:15 22:04 06:30 WBC 12.6 H RBC 4.09 Hgb 12.3 Hct 38.7 MCV 94.6 MCH 30.1 MCHC 31.8 RDW 14.1 Plt Count 168 MPV 9.4 Gran % 71.0 H Lymph % (Auto) 16.5 L Barry % (Auto) 12.3 H Eos % (Auto) 0.0 L Baso % (Auto) 0.2 Gran # 8.92 H Lymph # (Auto) 2.1 Barry # (Auto) 1.6 H Eos # (Auto) 0.0 Baso # (Auto) 0.03 Sodium Potassium Chloride Carbon Dioxide Anion Gap BUN Creatinine Est GFR ( Amer) Est GFR (Non-Af Amer) POC Glucose (mg/dL) 104 Random Glucose Calcium Phosphorus Magnesium Total Bilirubin AST ALT Alkaline Phosphatase Total Creatine Kinase CK-MB (CK-2) CK-MB (CK-2) % Total Protein Albumin Globulin Albumin/Globulin Ratio Urine Color Yellow Urine Appearance Clear Urine pH 6.0 Ur Specific [place] 1.025 Urine Protein 100 H Urine Glucose (UA) Negative Urine Ketones Negative Urine Blood Small H Urine Nitrate Negative Urine Bilirubin Negative Urine Urobilinogen 0.2 Ur Leukocyte Esterase Negative Urine RBC 15 - 20 Urine WBC 2 - 5 Ur Epithelial Cells 10 - 12 05/06/18 05/06/18 06:30 06:30 WBC RBC Hgb Hct MCV MCH MCHC RDW Plt Count MPV Gran % Lymph % (Auto) Barry % (Auto) Eos % (Auto) Baso % (Auto) Gran # Lymph # (Auto) Barry # (Auto) Eos # (Auto) Baso # (Auto) Sodium 146 Potassium 3.8 Chloride 115 H Carbon Dioxide 25 Anion Gap 10 BUN 26 H Creatinine 0.7 Est GFR ( Amer) > 60 Est GFR (Non-Af Amer) > 60 POC Glucose (mg/dL) Random Glucose 119 H Calcium 8.2 L Phosphorus 2.6 Magnesium 2.5 H Total Bilirubin 1.2 AST 75 H ALT 57 H Alkaline Phosphatase 79 Total Creatine Kinase 1111 H CK-MB (CK-2) 6.6 H CK-MB (CK-2) % 0.6 L Total Protein 6.2 Albumin 3.0 Globulin 3.2 Albumin/Globulin Ratio 1.0 L Urine Color Urine Appearance Urine pH Ur Specific [place] Urine Protein Urine Glucose (UA) Urine Ketones Urine Blood Urine Nitrate Urine Bilirubin Urine Urobilinogen Ur Leukocyte Esterase Urine RBC Urine WBC Ur Epithelial Cells Assessment & Plan - Assessment and Plan (Free Text) Assessment: 83 year old female with a disabling right MCA territory stroke likely due to a right ICA occlusion. Plan: 1-No role for revascularizartion of the right ICA as it is fully occluded, and this has been a disabling stroke. 2-When the patient recovers repeat imaging is needed to see if the right ICA is still occluded, and if it has opened up there might be a role for revascularization. Further, in the case where she recovers and the right ICA remains occluded, can consider stenting of the highgly stenotic contralateral left ICA to aid in cerebral perfusion. However this should be deferred until the patient is out of the acute period and we see how she recovers. - Date & Time Date: 05/06/18 Time: 12:59
--- NOTE | 2018-05-06 13:03 | CP.PCM.CON ---
History of Present Illness - History of Present Illness History of Present Illness: Palliative consult requested by Dr Naveen Leigh Reason: Goals of care and advance care planning 83 year old female with history of CVA,HTN, CAD,COPD, hypothyroidism who was brought to ED by EMS after being found on floor at home. Neighbors reported not having seen the patient fir 2 days. She presented with mild confusion, multiple wounds on both knees and left side of face. She denied dizziness or loss of consciousness. CT of chest/ab/pelvis left lower lobe infiltrate, multiple post inflammatory nodules right apex and left lung base,left 10th rib fracture. C spine showed severe degenerative changes. CT of head showed right basal ganglia subacute infarct with mild mass effect and compressions of right lateral ventricle, mid soft tissue edema of left scalp PMHx: CVA, [place] X2, vertigo, multiple falls, depression,hypothyroidism, skin cancer bridge of nose, jazmyne. cataract surgery, fx left patellar. Social History: Never smoker, no alcohol or drug use. Lives independently. Family History: Non contributory. Review of Systems: Left sided ant paresis, cough ,12 point review otherwise negative. Past Patient History - Infectious Disease Hx of Infectious Diseases: None - Tetanus Immunizations Tetanus Immunization: Unknown - Past Medical History & Family History Past Medical History?: Yes - Past Social History Smoking Status: Never Smoked Home Situation {Lives}: Alone - CARDIAC Hx Cardiac Disorders: Yes Hx Angina: Yes Hx Heart Attack: Yes (2 WV) Hx Hypertension: Yes Hx Pacemaker: No Hx Peripheral Vascular Disease: Yes - PULMONARY Hx Respiratory Disorders: Yes Hx Asthma: Yes Hx Chronic Obstructive Pulmonary Disease (COPD): Yes - NEUROLOGICAL Hx Paralysis: No Hx Vertigo: Yes - HEENT Hx HEENT Problems: Yes Hx Cataracts: Yes (had sx b/l) Hx Deafness: No Hx Difficulty Chewing: No Hx Epistaxis: No Hx Glaucoma: Yes Hx Macular Degeneration: No Other/Comment: cataract surgery - RENAL Hx Chronic Kidney Disease: No Hx Renal Failure: No - ENDOCRINE/METABOLIC Hx Endocrine Disorders: Yes Hx Hyperthyroidism: No Hx Hypothyroidism: Yes - HEMATOLOGICAL/ONCOLOGICAL Hx Anemia: Yes Hx Blood Transfusions: No - INTEGUMENTARY Hx Dermatological Problems: Yes Hx Basil Cell: No Hx Eczema: Yes Hx Melanoma: No Hx Psoriasis: No Hx Squamous Cell: No Other/Comment: skin cancer removed from the bridge of the nose. Patient does not know what type of skin cancer. 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 ) Hx Coronary Stent: Yes (x4) Hx Orthopedic Surgery: Yes - ANESTHESIA Hx Anesthesia: Yes Hx Anesthesia Reactions: No Hx Malignant Hyperthermia: No Meds Allergies/Adverse Reactions: Allergies Allergy/AdvReac Type Severity Reaction Status Date / Time lactase [From [employer]] Allergy CONGESTION Verified 05/04/18 17:14 Penicillins Allergy ANAPHYLAXIS Verified 05/04/18 17:14 - Medications Medications: Current Medications Albuterol/Ipratropium (Duoneb 3 Mg/0.5 Mg (3 Ml) Ud) 3 ml IH [id number] PRN PRN Reason: Shortness of Breath Stop: 05/07/18 22:50 Aspirin (Ecotrin) 81 mg PO DAILY [facility] Last Admin: 05/05/18 09:52 Dose: Not Given Atorvastatin Calcium (Lipitor) 40 mg PO DIN [facility] Last Admin: 05/05/18 18:59 Dose: Not Given Docusate Sodium (Colace) 100 mg PO BID [facility] Last Admin: 05/06/18 09:00 Dose: Not Given Guaifenesin/Dextromethorphan (Robitussin Dm) 5 ml PO Q4H PRN PRN Reason: Cough Sodium Chloride (Sodium Chloride 0.9%) 1,000 mls @ 50 mls/hr IV .Q20H [facility] Morphine Sulfate (Morphine) 1 mg IVP Q4H PRN PRN Reason: Pain, moderate (4-7) Last Admin: 05/05/18 18:58 Dose: 1 mg Pantoprazole Sodium (Protonix Inj) 40 mg IVP DAILY [facility] Last Admin: 05/06/18 12:15 Dose: 40 mg Physical Exam - Constitutional Appears: No Acute Distress - Head Exam Head Exam: NORMOCEPHALIC Additional comments: brusing, wound to left side of face and temporal area, left facial droop - Eye Exam Eye Exam: Normal appearance, PERRL - ENT Exam ENT Exam: Mucous Membranes Moist, Normal Oropharynx - Neck Exam Neck exam: Positive for: Normal Inspection - Respiratory Exam Respiratory Exam: Decreased Breath Sounds, NORMAL BREATHING PATTERN - Cardiovascular Exam Cardiovascular Exam: REGULAR RHYTHM, +S1, +S2 - GI/Abdominal Exam GI & Abdominal Exam: Normal Bowel Sounds, Soft - Extremities Exam Extremities exam: Positive for: pedal edema, pedal pulses present Additional comments: left ant paresis - Back Exam Back exam: NORMAL INSPECTION - Neurological Exam Neurological exam: Alert, Oriented x3 - Skin Skin Exam: Dry, Warm Additional comments: multiple scrapes and bruising of both knees - Additional Findings Additional findings: Palliative performance scale rating 50% Results - Vital Signs Recent Vital Signs: Last Vital Signs Temp 98.4 F 05/06/18 05:37 Pulse 76 05/06/18 05:38 Resp 20 05/06/18 05:37 BP 157/77 H 05/06/18 05:37 Pulse Ox 93 L 05/06/18 05:37 - Labs Result Diagrams: 05/06/18 06:30 05/06/18 06:30 Labs: Laboratory Results - last 24 hr 05/05/18 05/05/18 05/06/18 21:15 22:04 06:30 WBC 12.6 H RBC 4.09 Hgb 12.3 Hct 38.7 MCV 94.6 MCH 30.1 MCHC 31.8 RDW 14.1 Plt Count 168 MPV 9.4 Gran % 71.0 H Lymph % (Auto) 16.5 L [place] % (Auto) 12.3 H Eos % (Auto) 0.0 L Baso % (Auto) 0.2 Gran # 8.92 H Lymph # (Auto) 2.1 Creek # (Auto) 1.6 H Eos # (Auto) 0.0 Baso # (Auto) 0.03 Sodium Potassium Chloride Carbon Dioxide Anion Gap BUN Creatinine Est GFR ( Amer) Est GFR (Non-Af Amer) POC Glucose (mg/dL) 104 Random Glucose Calcium Phosphorus Magnesium Total Bilirubin AST ALT Alkaline Phosphatase Total Creatine Kinase CK-MB (CK-2) CK-MB (CK-2) % Total Protein Albumin Globulin Albumin/Globulin Ratio Urine Color Yellow Urine Appearance Clear Urine pH 6.0 Ur Specific [place] 1.025 Urine Protein 100 H Urine Glucose (UA) Negative Urine Ketones Negative Urine Blood Small H Urine Nitrate Negative Urine Bilirubin Negative Urine Urobilinogen 0.2 Ur Leukocyte Esterase Negative Urine RBC 15 - 20 Urine WBC 2 - 5 Ur Epithelial Cells 10 - 12 05/06/18 05/06/18 06:30 06:30 WBC RBC Hgb Hct MCV MCH MCHC RDW Plt Count MPV Gran % Lymph % (Auto) Creek % (Auto) Eos % (Auto) Baso % (Auto) Gran # Lymph # (Auto) Creek # (Auto) Eos # (Auto) Baso # (Auto) Sodium 146 Potassium 3.8 Chloride 115 H Carbon Dioxide 25 Anion Gap 10 BUN 26 H Creatinine 0.7 Est GFR ( Amer) > 60 Est GFR (Non-Af Amer) > 60 POC Glucose (mg/dL) Random Glucose 119 H Calcium 8.2 L Phosphorus 2.6 Magnesium 2.5 H Total Bilirubin 1.2 AST 75 H ALT 57 H Alkaline Phosphatase 79 Total Creatine Kinase 1111 H CK-MB (CK-2) 6.6 H CK-MB (CK-2) % 0.6 L Total Protein 6.2 Albumin 3.0 Globulin 3.2 Albumin/Globulin Ratio 1.0 L Urine Color Urine Appearance Urine pH Ur Specific [place] Urine Protein Urine Glucose (UA) Urine Ketones Urine Blood Urine Nitrate Urine Bilirubin Urine Urobilinogen Ur Leukocyte Esterase Urine RBC Urine WBC Ur Epithelial Cells Assessment & Plan - Assessment and Plan (Free Text) Assessment: 83 year old female with history of CVA, [place],HTN, hypothyroidism and vertigo who is admitted with acute right basal ganglia infarct, left ant paresis, LLL infiltrate, rhabdomyolysis, deconditioning and HTN. The patient is alert and oriented. Complains of mild cough. States she has an Advanced Directive and is DNR/DNI. A copy is found in the chart. Later when patients daughter Pastora was at bedside we discussed advance care panning a second time. Benefits and burdens of CPR/intubation explained. The patient affirms that she wants to be DNR/DNI. POLST directive explained, encouraged to complete POLST prior to discharge. Patient states that she will do so. Pastora patients daughter in agreement with this plan. Time spent with patient and family in goals of care and advance cawe planning discussions, 30 minutes Plan: CVA: Neurology following, PT/Ot, speech and swallow eval, PT/OT> LATOYA LLL pneumonia:Received Levaquin and Azactem in ED,dueonbes/ cough meds as needed , monitor chest x ray. Pain: Morphine 1 mg IV as needed Rhabdomyolsysis: IVF's, monitor labs Goals of care and advance care planning
[2018-05-06] MEDS ORDERED: Bacitracin 500 Units/gm Oint Foilpak UD TOP ONE (16:06)
--- NOTE | 2018-05-06 22:47 | CP.PCM.PN ---
Subjective - Date & Time of Evaluation Date of Evaluation: 05/06/18 Time of Evaluation: 22:44 - Subjective Subjective: Pt seen and is able to answer simple questions. She denies any pain. Objective - Vital Signs/Intake and Output Vital Signs (last 24 hours): Temp Pulse Resp BP Pulse Ox 98.0 F 78 19 167/59 H 93 L 05/06/18 17:39 05/06/18 17:39 05/06/18 17:39 05/06/18 17:39 05/06/18 17:39 - Medications Medications: Current Medications Albuterol/Ipratropium (Duoneb 3 Mg/0.5 Mg (3 Ml) Ud) 3 ml IH [id number] PRN PRN Reason: Shortness of Breath Stop: 05/07/18 22:50 Aspirin (Ecotrin) 81 mg PO DAILY [facility] Last Admin: 05/05/18 09:52 Dose: Not Given Aspirin (Aspirin Supp) 300 mg RC DAILY [facility] Atorvastatin Calcium (Lipitor) 40 mg PO DIN [facility] Last Admin: 05/06/18 17:22 Dose: Not Given Docusate Sodium (Colace) 100 mg PO BID [facility] Last Admin: 05/06/18 18:27 Dose: Not Given Guaifenesin/Dextromethorphan (Robitussin Dm) 5 ml PO Q4H PRN PRN Reason: Cough Sodium Chloride (Sodium Chloride 0.9%) 1,000 mls @ 50 mls/hr IV .Q20H [facility] Morphine Sulfate (Morphine) 1 mg IVP Q4H PRN PRN Reason: Pain, moderate (4-7) Last Admin: 05/05/18 18:58 Dose: 1 mg Pantoprazole Sodium (Protonix Inj) 40 mg IVP DAILY [facility] Last Admin: 05/06/18 12:15 Dose: 40 mg - Labs Labs: 05/06/18 06:30 05/06/18 06:30 PT 13.8 SECONDS (9.4-12.5) H 05/05/18 06:30 INR 1.20 (0.93-1.08) H 05/05/18 06:30 APTT 36.4 Seconds (25.1-36.5) 05/05/18 06:30 - Constitutional Appears: Well - ENT Exam ENT Exam: Normal Exam - Neck Exam Neck Exam: Normal Inspection - Cardiovascular Exam Cardiovascular Exam: REGULAR RHYTHM - GI/Abdominal Exam GI & Abdominal Exam: Soft, Normal Bowel Sounds - Exam External exam: NORMAL EXTERNAL EXAM Assessment and Plan - Assessment and Plan (Free Text) Plan: Pt seen and examined. I have reviewed the note of the biomedical equipment technician and agree with it. I have discussed the assessment and plan with the resident. I have reviewed the patient's labs and medications. Spoke to family about advanced directives. Poor prognosis. Spoke to Brunilda. Palliative care consult appreciated.
--- NOTE | 2018-05-07 00:08 | CON ---
Copied To: Chay Smith MD Attending MD: Chay Smith MD DATE: 05/06/2018 GASTROENTEROLOGY CONSULTATION REQUESTING PHYSICIAN: Dr. Isrrael Cardenas. REASON FOR CONSULTATION: I have been asked to see this 83-year-old female with known history of coronary artery disease, status post coronary artery stents; hypertension; COPD; hypothyroidism; skin cancer, who comes to the hospital after being found on the floor by EMS. The patient was found to be dysarthric. She was also found to have left-sided hemiparesis. A CT scan of the head performed in the emergency room revealed large right MCA infarct involving the basal ganglia. Repeat CAT scan performed yesterday shows evidence of new bleed. The patient failed a swallowing evaluation. I have been asked to see this patient for possible PEG placement. PAST MEDICAL HISTORY: As above. Again, she has a history of coronary artery disease, status post stent placements, hypertension, COPD, hypothyroidism, skin cancer. PAST SURGICAL HISTORY: Notable for cataract surgery. SOCIAL HISTORY: She denies cigarette smoking or alcohol use. FAMILY HISTORY: Noncontributory. REVIEW OF SYSTEMS: A 14-point review of systems is notable for left hemiplegia, dysarthria and dysphagia. PHYSICAL EXAMINATION: GENERAL: Elderly female lying in bed, awake, alert, verbally responsive. VITAL SIGNS: Reveal temperature of 98.4, blood pressure 157/77, heart rate of 82. HEENT: Reveals an area of ecchymosis on her left frontal scalp. Sclerae white. Conjunctivae pink. NECK: Supple. CHEST: Reveal lungs to be clear. HEART: Reveals regular rate and rhythm. ABDOMEN: Soft, nontender. No mass. EXTREMITIES: Show no edema. She has left hemiparesis. LABORATORY DATA: Reveal white blood cell count of 12.6, hemoglobin 12.3. Chemistries reveal BUN 26, creatinine 0.7, chloride 115, total CK of ____, AST 75, ALT 57. IMPRESSION: An 83-year-old female with a large right middle cerebral artery infarct with most recent CAT scan showing a possible bleed. There is evidence of a midline shift. There is considerable edema in the area of the infarct. The patient is at risk for herniation. RECOMMENDATIONS: 1. We will repeat a swallowing eval in the morning given the fact that the patient now is more awake, alert and verbal. If a PEG placement is needed, would ideally like to wait 1-2 days to allow the brain edema to decrease and also to follow any progression of acute bleeding. 2. If enteral feeds are needed, the patient can have a Dobbhoff tube placement for nasogastric tube feedings. Chay Smith MD [facility] # [phone]
[2018-05-07 07:07] LABS: ALT/SGPT 57 U/L (7-56); AST/SGOT 91 U/L (14-36); BLOOD UREA NITROGEN 23 mg/dL (7-21); CALCIUM 8.4 mg/dL (8.4-10.5); GFR AFRICAN-AMERICAN > 60; GFR NON-AFRICAN AMERICAN > 60
[2018-05-07 07:29] LABS: CK MB% 0.7 % (2.5-3.0); CK-MB 9.4 ng/mL (0.0-3.6)
[2018-05-07 07:56] LABS: BASO # 0.03 K/mm3 (0.0-2.0); BASO % 0.3 % (0.0-3.0); EOS # 0.3 (0.0-0.7); EOS % 2.5 % (1.5-5.0); GRAN # 7.99 (1.4-6.5); GRAN % 68.7 % (50.0-68.0); HEMOGLOBIN 11.9 g/dL (12.0-16.0); LYMPH # 1.8 (1.2-3.4); LYMPH % 15.1 % (22.0-35.0); MEAN CELL VOLUME 95.1 fl (80.0-105.0); MEAN CORPUSCULAR HEMOGLOBIN 30.4 pg (25.0-35.0); MEAN PLATELET VOLUME 9.9 fl (7.0-11.0); MONO # 1.6 (0.1-0.6); MONO % 13.4 % (1.0-6.0); RBC 3.91 10^6/uL (3.5-6.1); RED CELL DISTRIBUTION WIDTH 14.1 % (11.5-14.5); WHITE BLOOD COUNT 11.6 10^3/ul (4.5-11.0)
--- NOTE | 2018-05-07 08:07 | CP.PCM.PN ---
<ChuckAdri - Last Filed: 05/07/18 11:08> Subjective - Date & Time of Evaluation Date of Evaluation: 05/07/18 Time of Evaluation: 07:00 - Subjective Subjective: PGY-[address] Cardenas No acute event reported overnight. Pt mentation improves, no acute complaint. She knows this is the hospital as compared to yesterday when she thought she was at home. Objective - Vital Signs/Intake and Output Vital Signs (last 24 hours): Temp Pulse Resp BP Pulse Ox 99.0 F 77 17 159/66 H 98 05/07/18 06:00 05/07/18 06:00 05/07/18 06:00 05/07/18 06:00 05/07/18 06:00 Intake and Output: 05/07/18 05/07/18 06:59 18:59 Intake Total 600 Balance 600 - Medications Medications: Current Medications Albuterol/Ipratropium (Duoneb 3 Mg/0.5 Mg (3 Ml) Ud) 3 ml IH [id number] PRN PRN Reason: Shortness of Breath Stop: 05/07/18 22:50 Aspirin (Aspirin Supp) 300 mg RC DAILY [facility] Atorvastatin Calcium (Lipitor) 40 mg PO DIN [facility] Last Admin: 05/06/18 17:22 Dose: Not Given Docusate Sodium (Colace) 100 mg PO BID [facility] Last Admin: 05/06/18 18:27 Dose: Not Given Guaifenesin/Dextromethorphan (Robitussin Dm) 5 ml PO Q4H PRN PRN Reason: Cough Sodium Chloride (Sodium Chloride 0.9%) 1,000 mls @ 50 mls/hr IV .Q20H [facility] Last Admin: 05/06/18 20:30 Dose: 50 mls/hr Morphine Sulfate (Morphine) 1 mg IVP Q4H PRN PRN Reason: Pain, moderate (4-7) Last Admin: 05/05/18 18:58 Dose: 1 mg Pantoprazole Sodium (Protonix Inj) 40 mg IVP DAILY [facility] Last Admin: 05/06/18 12:15 Dose: 40 mg - Labs Labs: 05/07/18 06:15 05/07/18 06:15 PT 13.8 SECONDS (9.4-12.5) H 05/05/18 06:30 INR 1.20 (0.93-1.08) H 05/05/18 06:30 APTT 36.4 Seconds (25.1-36.5) 05/05/18 06:30 - Constitutional Appears: No Acute Distress - Head Exam Head Exam: ATRAUMATIC, NORMAL INSPECTION, NORMOCEPHALIC - Eye Exam Eye Exam: EOMI, Normal appearance, PERRL. absent: Scleral icterus Pupil Exam: NORMAL ACCOMODATION - ENT Exam ENT Exam: Mucous Membranes Moist - Neck Exam Additional comments: supple - Respiratory Exam Respiratory Exam: Decreased Breath Sounds (b/l lung bases), Clear to Ausculation Bilateral. absent: Rales, Rhonchi, Wheezes - Cardiovascular Exam Cardiovascular Exam: REGULAR RHYTHM, +S1, +S2 - GI/Abdominal Exam GI & Abdominal Exam: Soft, Normal Bowel Sounds. absent: Rigid, Tenderness - Extremities Exam Extremities Exam: Pedal Edema (slight). absent: Calf Tenderness - Neurological Exam Neurological Exam: Alert Neuro motor strength exam: Left Upper Extremity: 0, Right Upper Extremity: 4, Left Lower Extremity: 0, Right Lower Extremity: 4 - Psychiatric Exam Psychiatric exam: Normal Affect, Normal Mood - Skin Skin Exam: Dry, Warm Assessment and Plan - Assessment and Plan (Free Text) Plan: Ms. Cota, 83 F, with PMH of CVA (2017), vertigo, CAD x 4 stents, COPD, hypothyroidism, skin cancer was found face down on the floor after unseen by neighbors for several days. GCS on presentation was 14 due to mild confusion. 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 She remains L hemiplegia & dysphagic, failed swallow evaluation on 05/05 & 05/06. Per GI, will consider NG and will schedule PEG placement if failed swallow eval #3 A: Large R MCA infarct likely from occluded R ICA Mass effect with midline shift, 4mm, likely from edema and hemorrhagic conversion L hemiplegia & dysphagia failed swallow eval - MRI (05/05): large R MCA territory acute infarct, foci at R basal ganglia, likely hemorrhage and mass-effect with approximately 4.7 right to left midline shift. - Echo (05/05) showed normal EF, no obvious cardiac source of emboli - CTA head/neck (05/05)s complete occlusion of R ICA and severe stenosis ( greater than 95%) of left ICA - Repeat CT (05/06) shows similar mass effect on R lateral ventrical, and similar mid-line shift 4mm Questionable LLL Community acquired PNA vs aspiration pneumonitis - CT chest/abdomen/pelvis (05/04) showed left lower lobe infiltrates Rhadhomyolysis Rib fracture - non displaced fx of left 10th rib. no pneumothorax. Hx Falls Hx COPD Hx hypothyroidism Penicillin allergy multiple superficial wounds likely from fall DNR/DNI P: For dysphagia, swallow eval #3 today. If fails, will place donbhoff and f/u with GI regarding PEG date. For stroke, neuro check q6, noted change in pupillary size for possible herniation Per neuro, low risk to hernia due to pre-existing. HOB >45. Maintain nomotensive D/C Telemetry; Resume ASA. Continue lipitor 40 PT/OT Turn Q2, multipudus boot to prevent pressure ulcer No plan for R ICA stent placement for now. As for dysphagia, For possible PNA. Observe off antibiotics. Follow sputum cx, procalc, blood cx. Continue duoneb. Oxygen NC prn For rib fracture, cough meds prn. incentive spirometry For rhabdo, Continue NS 0.9 @ decrease rate of 50cc/hr in the setting of brain mid-line shift Strict i/o, trend CK,Bun/Cre For hypothyroid, Levothyroxin. f/u TSH, free T3 Prophylaxis: SCDs as tolerated due to wounds/abrasion; Protonix. Contraindicated to VTE for poss hemorrhagic conversion of the stroke Prognosis: guarded Discharge planning: - - DaughterPastora, Family is looking for subacute into possible LTC. Patient has been accepted to several facilities in [place]. Seven at [facility] and [facility]. - Patient/family is looking for [facility] who has No bed availability at this time. Patient said or [facility] she was there before. - Per neurosurg, for now. no plan to revascularize R ICA as it is fulling occluded in the setting of disabiling stroke. - After the acute period, repeat CTA head and neck when pt recovers, if R ICA is still occluded but re-opens, then revascularization may have a role, Or may consider stenting highly stenotic contralateral L ICA to aid in cerbral perfusion. Consult: Dr Anderson; Palliative; Dr Coles, neurosurg s/r/d/w Dr Cardenas <Isrrael Cardenas S - Last Filed: 05/07/18 20:02> Objective - Vital Signs/Intake and Output Vital Signs (last 24 hours): Temp Pulse Resp BP Pulse Ox 98.0 F 77 19 173/77 H 96 05/07/18 17:10 05/07/18 17:10 05/07/18 17:10 05/07/18 17:10 05/07/18 17:10 Intake and Output: 05/07/18 05/08/18 18:59 06:59 Intake Total 450 Output Total 600 Balance -150 - Medications Medications: Current Medications Albuterol/Ipratropium (Duoneb 3 Mg/0.5 Mg (3 Ml) Ud) 3 ml IH [id number] PRN PRN Reason: Shortness of Breath Stop: 05/07/18 22:50 Aspirin (Aspirin Supp) 300 mg RC DAILY [facility] Last Admin: 05/07/18 10:14 Dose: 300 mg Atorvastatin Calcium (Lipitor) 40 mg PO DIN [facility] Last Admin: 05/06/18 17:22 Dose: Not Given Docusate Sodium (Colace) 100 mg PO BID [facility] Last Admin: 05/07/18 09:00 Dose: Not Given Guaifenesin/Dextromethorphan (Robitussin Dm) 5 ml PO Q4H PRN PRN Reason: Cough Potassium Chloride 80 meq/ (Sodium Chloride) 1,040 mls @ 50 mls/hr IV .[id number] [facility] Last Admin: 05/07/18 13:08 Dose: 50 mls/hr Morphine Sulfate (Morphine) 1 mg IVP Q4H PRN PRN Reason: Pain, moderate (4-7) Last Admin: 05/05/18 18:58 Dose: 1 mg Pantoprazole Sodium (Protonix Inj) 40 mg IVP DAILY [facility] Last Admin: 05/07/18 10:14 Dose: 40 mg - Labs Labs: 05/07/18 06:15 05/07/18 06:15 PT 13.8 SECONDS (9.4-12.5) H 05/05/18 06:30 INR 1.20 (0.93-1.08) H 05/05/18 06:30 APTT 36.4 Seconds (25.1-36.5) 05/05/18 06:30 Assessment and Plan - Assessment and Plan (Free Text) Plan: Pt seen and examined. I have reviewed the note of the special forces medical sergeant and agree with it. I have discussed the assessment and plan with the resident. I have reviewed the patient's labs and medications. Pt with dysphagia. Possible PEG if her dysphagia is not improved. Pt will need LATOYA. She is DNR. Interventional Neurolgy evaluated the pt. She is on IVF as she is NPO. She will probably need terminal carman care.
--- NOTE | 2018-05-07 12:21 | PN ---
Copied To: Chay Smith MD Attending MD: Chay Smith MD DATE: 05/07/2018 SUBJECTIVE: The patient is lying in bed. She is awake, alert. She is oriented to person, place and time. PHYSICAL EXAMINATION: VITAL SIGNS: Reveal temperature of 97.7, blood pressure 108/50, heart rate of 73. HEENT: Reveal an area of ecchymosis on her left forehead. Her oral mucosa is dry and crusted. NECK: Supple. CHEST: Reveal lungs to be clear. HEART: Reveals regular rate and rhythm. ABDOMEN: Soft, nontender, obese. EXTREMITIES: Show no edema. She has a left hemiparesis. IMPRESSION: Large middle cerebral artery distribution stroke with surrounding brain edema and evidence of recent brainstem bleed with midline shift. The patient is at risk for herniation. She does have a living will. She is a DNR. The patient is refusing a percutaneous endoscopic gastrostomy even if she cannot swallow. She has Physicians Orders for Life Sustaining Treatment. RECOMMENDATIONS: 1. Continue supportive care. 2. Consider hospice care. Chay Smith MD [facility] # [phone]
[2018-05-08 06:26] LABS: BASO # 0.02 K/mm3 (0.0-2.0); BASO % 0.2 % (0.0-3.0); EOS # 0.5 (0.0-0.7); EOS % 4.7 % (1.5-5.0); GRAN # 6.39 (1.4-6.5); GRAN % 64.8 % (50.0-68.0); HEMOGLOBIN 11.9 g/dL (12.0-16.0); LYMPH # 1.6 (1.2-3.4); MEAN CELL VOLUME 94.8 fl (80.0-105.0); MEAN CORPUSCULAR HEMOGLOBIN 30.7 pg (25.0-35.0); MEAN CORPUSCULAR HGB CONC 32.3 g/dl (31.0-37.0); MEAN PLATELET VOLUME 9.7 fl (7.0-11.0); MONO # 1.4 (0.1-0.6); MONO % 14.3 % (1.0-6.0); RBC 3.88 10^6/uL (3.5-6.1); WHITE BLOOD COUNT 9.9 10^3/ul (4.5-11.0)
[2018-05-08 06:56] LABS: ALB/GLOB RATIO 0.9 (1.1-1.8); ALT/SGPT 66 U/L (7-56); AST/SGOT 81 U/L (14-36); BLOOD UREA NITROGEN 22 mg/dL (7-21); CALCIUM 8.7 mg/dL (8.4-10.5); GFR AFRICAN-AMERICAN > 60; GFR NON-AFRICAN AMERICAN > 60
[2018-05-08 07:23] LABS: CK-MB 2.6 ng/mL (0.0-3.6)
--- NOTE | 2018-05-08 09:04 | CP.PCM.PN ---
<Adri Woods - Last Filed: 05/08/18 09:00> Subjective - Date & Time of Evaluation Date of Evaluation: 05/08/18 Time of Evaluation: 07:00 - Subjective Subjective: PGY-[address] Monge passed swallow eval. Back hurt from laying too much. Remembered friend and daughter visit. no other acute complaint Objective - Vital Signs/Intake and Output Vital Signs (last 24 hours): Temp Pulse Resp BP Pulse Ox 97.9 F 67 20 150/71 97 05/08/18 08:24 05/08/18 08:24 05/08/18 08:24 05/08/18 08:24 05/08/18 08:24 Intake and Output: 05/08/18 05/08/18 06:59 18:59 Intake Total 1170 Output Total 1075 Balance 95 - Medications Medications: Current Medications Aspirin (Aspirin) 325 mg PO DAILY [facility] Atorvastatin Calcium (Lipitor) 40 mg PO DIN [facility] Last Admin: 05/06/18 17:22 Dose: Not Given Docusate Sodium (Colace) 100 mg PO BID [facility] Last Admin: 05/07/18 09:00 Dose: Not Given Guaifenesin/Dextromethorphan (Robitussin Dm) 5 ml PO Q4H PRN PRN Reason: Cough Potassium Chloride 80 meq/ (Sodium Chloride) 1,040 mls @ 50 mls/hr IV .[id number] [facility] Last Admin: 05/07/18 13:08 Dose: 50 mls/hr Levothyroxine Sodium (Synthroid) 50 mcg PO DAILY [facility] Morphine Sulfate (Morphine) 1 mg IVP Q4H PRN PRN Reason: Pain, moderate (4-7) Last Admin: 05/05/18 18:58 Dose: 1 mg Pantoprazole Sodium (Protonix Inj) 40 mg IVP DAILY [facility] Last Admin: 05/07/18 10:14 Dose: 40 mg - Labs Labs: 05/08/18 06:00 05/08/18 06:00 PT 13.8 SECONDS (9.4-12.5) H 05/05/18 06:30 INR 1.20 (0.93-1.08) H 05/05/18 06:30 APTT 36.4 Seconds (25.1-36.5) 05/05/18 06:30 - Constitutional Appears: No Acute Distress - Head Exam Head Exam: ATRAUMATIC, NORMAL INSPECTION, NORMOCEPHALIC - Eye Exam Eye Exam: EOMI, Normal appearance, PERRL. absent: Scleral icterus Pupil Exam: NORMAL ACCOMODATION - ENT Exam ENT Exam: Mucous Membranes Moist - Neck Exam Neck Exam: Normal Inspection - Respiratory Exam Respiratory Exam: Clear to Ausculation Bilateral. absent: Rales, Rhonchi, Wheezes - Cardiovascular Exam Cardiovascular Exam: REGULAR RHYTHM, +S1, +S2 - GI/Abdominal Exam GI & Abdominal Exam: Soft, Normal Bowel Sounds. absent: Guarding, Rigid, Tenderness - Extremities Exam Extremities Exam: absent: Calf Tenderness, Pedal Edema - Neurological Exam Neurological Exam: Alert, Awake, Oriented x3 Neuro motor strength exam: Left Upper Extremity: 0, Right Upper Extremity: 4, Left Lower Extremity: 0, Right Lower Extremity: 4 - Psychiatric Exam Psychiatric exam: Normal Affect, Normal Mood - Skin Skin Exam: Dry, Warm Assessment and Plan - Assessment and Plan (Free Text) Plan: Ms. Cota, 83 F, with PMH of CVA (2017), vertigo, CAD x 4 stents, COPD, hypothyroidism, skin cancer was found face down on the floor after unseen by neighbors for several days. GCS on presentation was 14 due to mild confusion. 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 She remains L hemiplegia & dysphagic, Pass swall eval. A: Large R MCA infarct likely from occluded R ICA Mass effect with midline shift, 4mm, likely from edema and hemorrhagic conversion L hemiplegia & dysphagia failed swallow eval - MRI (05/05): large R MCA territory acute infarct, foci at R basal ganglia, likely hemorrhage and mass-effect with approximately 4.7 right to left midline shift. - Echo (05/05) showed normal EF, no obvious cardiac source of emboli - CTA head/neck (05/05)s complete occlusion of R ICA and severe stenosis ( greater than 95%) of left ICA - Repeat CT (05/06) shows similar mass effect on R lateral ventrical, and similar mid-line shift 4mm Questionable LLL Community acquired PNA vs aspiration pneumonitis - CT chest/abdomen/pelvis (05/04) showed left lower lobe infiltrates Rhadhomyolysis Rib fracture - non displaced fx of left 10th rib. no pneumothorax. Hx Falls Hx COPD Hx hypothyroidism Penicillin allergy multiple superficial wounds likely from fall DNR/DNI P: For dysphagia, Pass swallow eval Resume ASA. Continue lipitor 40 PT/OT Turn Q2, multipudus boot to prevent pressure ulcer No plan for R ICA stent placement for now. For possible PNA. Observe off antibiotics. Follow sputum cx, procalc, blood cx. Continue duoneb. Oxygen NC prn For rib fracture, cough meds prn. incentive spirometry For rhabdo, Continue NS 0.9 @ decrease rate of 50cc/hr in the setting of brain mid-line shift Strict i/o, trend CK,Bun/Cre For hypothyroid, Levothyroxin. f/u TSH, free T3 Prophylaxis: SCDs as tolerated due to wounds/abrasion; Protonix. Contraindicated to VTE for poss hemorrhagic conversion of the stroke Prognosis: guarded Discharge planning: - Pending Bed available in [facility] already - - DaughterPastora, Family is looking for subacute into possible LTC. Patient has been accepted to several facilities in [place]. [facility] and [facility]. - Patient/family is looking for [facility] who has No bed availability at this time. Patient said or [facility] she was there before. - Per neurosurg, for now. no plan to revascularize R ICA as it is fulling occluded in the setting of disabiling stroke. - After the acute period, repeat CTA head and neck when pt recovers, if R ICA is still occluded but re-opens, then revascularization may have a role, Or may consider stenting highly stenotic contralateral L ICA to aid in cerbral perfusion. Consult: Dr Anderson; Palliative; Dr Coles, neurosurg s/r/d/w Dr Cardenas <Isrrael Cardenas S - Last Filed: 05/08/18 16:53> Objective - Vital Signs/Intake and Output Vital Signs (last 24 hours): Temp Pulse Resp BP Pulse Ox 97.9 F 67 20 150/71 97 05/08/18 08:24 05/08/18 08:24 05/08/18 08:24 05/08/18 08:24 05/08/18 08:24 Intake and Output: 05/08/18 05/08/18 06:59 18:59 Intake Total 1170 Output Total 1075 Balance 95 - Medications Medications: Current Medications Aspirin (Aspirin) 325 mg PO DAILY [facility] Last Admin: 05/08/18 09:36 Dose: 325 mg Atorvastatin Calcium (Lipitor) 40 mg PO DIN [facility] Last Admin: 05/06/18 17:22 Dose: Not Given Docusate Sodium (Colace) 100 mg PO BID [facility] Last Admin: 05/08/18 09:35 Dose: 100 mg Guaifenesin/Dextromethorphan (Robitussin Dm) 5 ml PO Q4H PRN PRN Reason: Cough Sodium Chloride (Sodium Chloride 0.9%) 1,000 mls @ 50 mls/hr IV .Q20H [facility] Last Admin: 05/08/18 12:23 Dose: 50 mls/hr Levothyroxine Sodium (Synthroid) 50 mcg PO DAILY [facility] Last Admin: 05/08/18 09:36 Dose: 50 mcg Morphine Sulfate (Morphine) 1 mg IVP Q4H PRN PRN Reason: Pain, moderate (4-7) Last Admin: 05/08/18 12:27 Dose: 1 mg Pantoprazole Sodium (Protonix Inj) 40 mg IVP DAILY [facility] Last Admin: 05/08/18 09:35 Dose: 40 mg - Labs Labs: 05/08/18 06:00 05/08/18 06:00 PT 13.8 SECONDS (9.4-12.5) H 05/05/18 06:30 INR 1.20 (0.93-1.08) H 05/05/18 06:30 APTT 36.4 Seconds (25.1-36.5) 05/05/18 06:30 Assessment and Plan - Assessment and Plan (Free Text) Plan: Pt seen and examined. I have reviewed the note of the nurses medical assistants phlebotomists and agree with it. I have discussed the assessment and plan with the resident. I have reviewed the patient's labs and medications. Pt with acute R MCA stroke. She was able to pass her swallowing evaluation. She has been started on a diet. No pain. Unable to move L arm and L leg. Will D/C IVF. She is ready for [facility] in [place] near her daughter.
[2018-05-08] MEDS ORDERED: Levothyroxine 50 MCG TAB PO SCH (10:00)
[2018-05-08] MEDS ORDERED: Sodium Chloride 0.9% 1,000 ML IV SCH (12:15)
[2018-05-08] MEDS: Morphine 2 mg/ml ISec IVP PRN (12:27)
--- NOTE | 2018-05-08 12:47 | PN ---
Copied To: Chay Smith MD Attending MD: Chay Smith MD DATE: 05/08/2018 SUBJECTIVE: The patient is lying in bed. She is awake, alert. She was able to tolerate small amounts of a pureed diet. Repeat swallowing evaluation revealed that the patient is able to take teaspoon fed pureed diet with nectar-thick liquids. The patient is at risk for aspiration given her recent CVA. PHYSICAL EXAMINATION: VITAL SIGNS: Reveal temperature of 97.9, blood pressure 150/71, heart rate of 67. HEENT: Reveals sclerae to be white. Conjunctivae pink. NECK: Supple. CHEST: Reveals lungs to be clear. HEART: Reveals a regular rate and rhythm. ABDOMEN: Obese, soft, nontender. EXTREMITIES: Show no edema. She does have left hemiplegia. LABORATORY DATA: Reveal white blood cell count 9.9, hemoglobin 11.9. Chemistries reveal AST, ALT of 81, 66 with a total bilirubin of 2.5. IMPRESSION: An 83-year-old female with a large right middle cerebral artery distribution cerebrovascular accident with considerable brain edema and associated brainstem bleed. She is a DNR and has an advanced directive requesting no percutaneous endoscopic gastrostomy placement. She is able to tolerate the pureed and nectar liquid diet. RECOMMENDATIONS: Continue supportive care. The patient has refused PEG placement Chay Smith MD
[2018-05-08] MEDS ORDERED: Simethicone 40 mg/0.6 ml Liquid (30 ml) PO SCH (18:00)
[2018-05-08 18:46] VITALS: BP 176/70; PULSE 76; RESP 19; TEMP 98; O2SAT 94
--- NOTE | 2018-05-09 10:26 | CP.PCM.DIS ---
Provider - Provider Date of Admission: 05/04/18 20:19 Attending physician: Isrrael Cardenas MD Consults: Consult: Dr Anderson; Palliative; Dr Coles, neurosurg Time Spent in preparation of Discharge (in minutes): 30 Diagnosis - Discharge Diagnosis (1) CVA (cerebral vascular accident) Status: Acute (2) Rhabdomyolysis Status: Acute (3) Rib fracture Status: Acute (4) CAD (coronary artery disease) Status: Chronic (5) COPD (chronic obstructive pulmonary disease) Status: Chronic (6) Hypothyroidism Status: Chronic (7) PVD (peripheral vascular disease) with claudication Status: Chronic Hospital Course - Lab Results Lab Results: Micro Results 05/05/18 21:15 Urine,Catheterized Urine Culture - Final Gram Negative Luis Fernando Most Recent Lab Values WBC 9.9 10^3/ul (4.5-11.0) 05/08/18 06:00 RBC 3.88 10^6/uL (3.5-6.1) 05/08/18 06:00 Hgb 11.9 g/dL (12.0-16.0) L 05/08/18 06:00 Hct 36.8 % (36.0-48.0) 05/08/18 06:00 MCV 94.8 fl (80.0-105.0) 05/08/18 06:00 MCH 30.7 pg (25.0-35.0) 05/08/18 06:00 MCHC 32.3 g/dl (31.0-37.0) 05/08/18 06:00 RDW 14.0 % (11.5-14.5) 05/08/18 06:00 Plt Count 200 10^3/uL (120.0-450.0) 05/08/18 06:00 MPV 9.7 fl (7.0-11.0) 05/08/18 06:00 Gran % 64.8 % (50.0-68.0) 05/08/18 06:00 Lymph % (Auto) 16.0 % (22.0-35.0) L 05/08/18 06:00 [place] % (Auto) 14.3 % (1.0-6.0) H 05/08/18 06:00 Eos % (Auto) 4.7 % (1.5-5.0) 05/08/18 06:00 Baso % (Auto) 0.2 % (0.0-3.0) 05/08/18 06:00 Gran # 6.39 (1.4-6.5) 05/08/18 06:00 Lymph # (Auto) 1.6 (1.2-3.4) 05/08/18 06:00 [place] # (Auto) 1.4 (0.1-0.6) H 05/08/18 06:00 Eos # (Auto) 0.5 (0.0-0.7) 05/08/18 06:00 Baso # (Auto) 0.02 K/mm3 (0.0-2.0) 05/08/18 06:00 PT 13.8 SECONDS (9.4-12.5) H 05/05/18 06:30 INR 1.20 (0.93-1.08) H 05/05/18 06:30 APTT 36.4 Seconds (25.1-36.5) 05/05/18 06:30 pO2 23 mm/Hg (30-55) L 05/04/18 17:00 VBG pH 7.38 (7.32-7.43) 05/04/18 17:00 VBG pCO2 55.0 (40-60) 05/04/18 17:00 VBG HCO3 32.5 mmol/l (21-28) H 05/04/18 17:00 VBG Total CO2 34.2 mmol.L (22-28) H 05/04/18 17:00 VBG O2 Sat (Calc) 47.1 % (40-65) 05/04/18 17:00 VBG Base Excess 5.8 mmol/L (0.0-2.0) H 05/04/18 17:00 VBG Potassium 4.2 mmol/L (3.6-5.2) 05/04/18 17:00 Sodium 143.0 mmol/L (132-148) 05/04/18 17:00 Chloride 107.0 mmol/L (98-107) 05/04/18 17:00 Glucose 131 mg/dl (65-105) H 05/04/18 17:00 Lactate 2.0 mmol/L (0.7-2.1) 05/04/18 17:00 FiO2 21.0 % 05/04/18 17:00 Sodium 146 mmol/L (132-148) 05/08/18 06:00 Potassium 4.3 mmol/L (3.6-5.0) 05/08/18 06:00 Chloride 112 mmol/L (98-107) H 05/08/18 06:00 Carbon Dioxide 27 mmol/L (21-33) 05/08/18 06:00 Anion Gap 11 (10-20) 05/08/18 06:00 BUN 22 mg/dL (7-21) H 05/08/18 06:00 Creatinine 0.7 mg/dl (0.7-1.2) 05/08/18 06:00 Est GFR ( Amer) > 60 05/08/18 06:00 Est GFR (Non-Af Amer) > 60 05/08/18 06:00 POC Glucose (mg/dL) 104 mg/dL (65-110) 05/05/18 22:04 Random Glucose 96 mg/dL (70-110) 05/08/18 06:00 Hemoglobin A1c 6.0 % (4.2-6.5) 05/05/18 06:30 Calcium 8.7 mg/dL (8.4-10.5) 05/08/18 06:00 Phosphorus 3.5 mg/dL (2.5-4.5) 05/08/18 06:00 Magnesium 2.5 mg/dL (1.7-2.2) H 05/08/18 06:00 Total Bilirubin 1.7 mg/dL (0.2-1.3) H 05/08/18 06:00 AST 81 U/L (14-36) H 05/08/18 06:00 ALT 66 U/L (7-56) H 05/08/18 06:00 Alkaline Phosphatase 124 U/L (38-126) 05/08/18 06:00 Lactate Dehydrogenase 608 U/L (333-699) 05/05/18 06:30 Total Creatine Kinase 586 U/L (35-230) H 05/08/18 06:00 CK-MB (CK-2) 2.6 ng/mL (0.0-3.6) 05/08/18 06:00 CK-MB (CK-2) % 0.7 % (2.5-3.0) L 05/07/18 06:15 Troponin I 0.04 ng/mL D 05/05/18 06:30 Total Protein 6.2 g/dL (5.8-8.3) 05/08/18 06:00 Albumin 3.0 g/dL (3.0-4.8) 05/08/18 06:00 Globulin 3.2 gm/dL 05/08/18 06:00 Albumin/Globulin Ratio 0.9 (1.1-1.8) L 05/08/18 06:00 Triglycerides 156 mg/dL (35-160) 05/05/18 06:30 Cholesterol 230 mg/dL (130-200) H 05/05/18 06:30 LDL Cholesterol Direct 136 mg/dL (0-129) H 05/05/18 06:30 HDL Cholesterol 44 mg/dL (29-60) 05/05/18 06:30 Lipase 36 U/L (23-300) 05/04/18 17:00 Procalcitonin 0.15 NG/ML (0.19-0.49) L 05/05/18 06:30 TSH 3rd Generation 1.49 mIU/mL (0.46-4.68) 05/05/18 06:30 Venous Blood Potassium 4.2 mmol/L (3.6-5.2) 05/04/18 17:00 Urine Color Yellow (YELLOW) 05/05/18 21:15 Urine Appearance Clear (CLEAR) 05/05/18 21:15 Urine pH 6.0 (4.7-8.0) 05/05/18 21:15 Ur Specific [place] 1.025 (1.005-1.035) 05/05/18 21:15 Urine Protein 100 mg/dL (<30 mg/dL) H 05/05/18 21:15 Urine Glucose (UA) Negative mg/dL (NEGATIVE) 05/05/18 21:15 Urine Ketones Negative mg/dL (NEGATIVE) 05/05/18 21:15 Urine Blood Small (NEGATIVE) H 05/05/18 21:15 Urine Nitrate Negative (NEGATIVE) 05/05/18 21:15 Urine Bilirubin Negative (NEGATIVE) 05/05/18 21:15 Urine Urobilinogen 0.2 E.U./dL (<1 E.U./dL) 05/05/18 21:15 Ur Leukocyte Esterase Negative Jacque/uL (NEGATIVE) 05/05/18 21:15 Urine RBC 15 - 20 /hpf (0-2) 05/05/18 21:15 Urine WBC 2 - 5 /hpf (0-6) 05/05/18 21:15 Ur Epithelial Cells 10 - 12 /hpf (0-5) 05/05/18 21:15 Blood Type A POSITIVE 05/04/18 19:40 Blood Type Confirm A POSITIVE 05/05/18 06:30 Antibody Screen Negative 05/04/18 19:40 BBK History Checked No verified bt 05/04/18 19:40 - Hospital Course Hospital Course: Ms. Cota, 83 F, with PMH of CVA (2017), vertigo, CAD x 4 stents, COPD, hypothyroidism, skin cancer was found face down on the floor after unseen by neighbors for several days. GCS on presentation was 14 due to mild confusion. 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 There was a mass effect with midline shift, 4mm, likely from edema and hemorrhagic conversion. She remains L hemiplegia & dysphagic after the stroke. She Pass swall eval on puree and honey thickner. She had lower risk for brain herniation due to preexisting brain injury. ASA resumed. Continue lipitor 40. PT/OT/ST started. Her R ICA was fully occluded. There is no immediate plan to revascularize R ICA as it is fulling occluded in the setting of disabiling stroke. After the acute period, repeat CTA head and neck when pt recovers, if R ICA is still occluded but re-opens, then revascularization may have a role, Or may consider stenting highly stenotic contralateral L ICA to aid in cerbral perfusion. CT chest/abdomen/pelvis (05/04) showed left lower lobe infiltrates. There was a Questionable LLL Community acquired PNA vs aspiration pneumonitis. Observe off antibiotics. Blood culture negative. Urine culture grew gram neg luis fernando, with colony count < 10K, likely colonization, no antibiotics needed She was found to have Rhadhomyolysis, treated with gentle IVF, to balance the edema in the brain. She had a non displaced fx of left 10th rib. no pneumothorax. For rib fracture, cough meds prn. incentive spirometry. Family and pt decided to change code status to DNR/DNI. Pt was stable and transfer to rehab for recovery. s/r/d/w Dr Cardenas Discharge Exam - Head Exam Head Exam: ATRAUMATIC, NORMAL INSPECTION, NORMOCEPHALIC - Eye Exam Eye Exam: EOMI, Normal appearance, PERRL. absent: Scleral icterus - ENT Exam ENT Exam: Mucous Membranes Moist - Neck Exam Additional comments: supple - Respiratory Exam Respiratory Exam: NORMAL BREATHING PATTERN. absent: Rales, Rhonchi, Wheezes - Cardiovascular Exam Cardiovascular Exam: REGULAR RHYTHM, +S1, +S2 - GI/Abdominal Exam GI & Abdominal Exam: Normal Bowel Sounds, Soft, Unremarkable. absent: Distended , Guarding, Rigid, Tenderness - Extremities Exam Extremities exam: pedal pulses present Additional comments: slight edema b/l - Back Exam Back exam: absent: CVA tenderness (L), CVA tenderness (R) - Neurological Exam Neurological exam: Alert Additional comments: AAO x [address] and people Speech mildly slurred with L facial droop LUE LLE hemiparalysis Sensation intact all extremities - Psychiatric Exam Psychiatric exam: Normal Affect, Normal Mood - Skin Skin Exam: Dry, Warm Discharge Plan - Follow Up Plan Condition: FAIR Disposition: REHAB FACILITY/REHAB UNIT Instructions: Stroke Additional Instructions: PATIENT BEING DISCHARGED TO ON LICENSE OF [facility] IN [place], [place]. Referrals: Isrrael Cardenas MD [Family Provider] -
== END 2018-05-08 20:30 | DRG 64 ==
LOC: ED 17:09 → ERH 20:19 → 2RSO 21:26 → 3RNO 05-06 14:31
PROVIDERS: ADMIT Internal Medicine; ATTEND Internal Medicine Nephrology
DX: I63.511 Cerebral infarction due to unspecified occlusion or stenosis of right middle cerebral artery (principal); J18.9 Pneumonia, unspecified organism; G93.6 Cerebral edema; I61.3 Nontraumatic intracerebral hemorrhage in brain stem; S22.32XA Fracture of one rib, left side, initial encounter for closed fracture; M62.82 Rhabdomyolysis; J44.0 Chronic obstructive pulmonary disease with (acute) lower respiratory infection; G81.94 Hemiplegia, unspecified affecting left nondominant side; R47.1 Dysarthria and anarthria; I65.23 Occlusion and stenosis of bilateral carotid arteries; I25.10 Atherosclerotic heart disease of native coronary artery without angina pectoris; I10 Essential (primary) hypertension; I73.9 Peripheral vascular disease, unspecified; R29.713 NIHSS score 13; Z66 Do not resuscitate; E03.9 Hypothyroidism, unspecified; K21.9 Gastro-esophageal reflux disease without esophagitis; L30.9 Dermatitis, unspecified; W19.XXXA Unspecified fall, initial encounter; I25.2 Old myocardial infarction; Z86.73 Personal history of transient ischemic attack (TIA), and cerebral infarction without residual deficits; Z91.81 History of falling; Z85.828 Personal history of other malignant neoplasm of skin; Z95.5 Presence of coronary angioplasty implant and graft; Y92.009 Unspecified place in unspecified non-institutional (private) residence as the place of occurrence of the external cause; Z88.0 Allergy status to penicillin